=== PATIENT | female | born 1965 | race Caucasian/White ===

== ENCOUNTER 2023-10-11 07:37 | Emergency (ER) | payer OTHER, SELFPAY ==
[2023-10-11] VITALS (8 sets, daily range): BP systolic 124–170; BP diastolic 65–110; BMI 37.7
[2023-10-11 08:55] LABS: % Basophils 0.5 % (0-2); % Eosinophils 1.6 % (0-6); % Immature Granulocytes 0.6 % (0-0.5); % Lymphocytes 10.9 % (20.5-51.1); % Monocytes 5.4 % (1.7-9.3); Absolute Eosinophils 0.1 10^3/uL (0-0.7); Absolute Immature Granulocytes 0.1 10^3/uL (0-0.05); Absolute Monocytes 0.5 10^3/uL (0.1-0.6); Absolute Neutrophils 7.1 10^3/uL (1.4-6.5); Hematocrit 48.2 % (37.0-47.0); Hemoglobin 16.9 g/dL (12.0-16.0); Mean Corp Hgb Conc. 35.1 g/dL (33.0-37.0); Mean Corpuscular Hgb 32.9 pg (27.0-31.0); Mean Corpuscular Volume 93.8 fL (81.0-99.0); Mean Platelet Volume 9.6 fL (7.4-10.4); Nucleated Red Blood Cells % 0 %; Platelet Count 218 10^3/uL (130-400); Red Blood Cell Count 5.14 10^6/uL (4.20-5.40); Red Cell Dist. Width 12.3 % (11.5-14.5); White Blood Cell Count 8.8 10^3/uL (4.8-10.8)
--- NOTE | 2023-10-11 09:01 | ED.GENMED ---
History of Present Illness
General
Chief Complaint: Rectal Bleeding
Source: patient
Exam Limitations: none
Time Seen by Provider: 10/11/23 07:57
Travel History
Have you had any contact with someone who has COVID-19?: No
Do you have any symptoms of coronavirus? Fever > 100 degrees, chills, cough, shortness of breath, sore throat, loss of taste or smell, muscle aches, or headache?: No
History of Present Illness
History of Present Illness:
57-year-old female who presents with rectal bleeding that has has been ongoing for about 3 days. The patient does have a history of colectomy with colostomy and then reversal. She was cared for by Dr. Jarrett in the past. Patient states the last 3
days she has had persistent bleeding. She also has had intermittent episodes where she feels like pressure in her head and that her face is red. She had to drum puller yesterday because she was dry heaving and felt like 'my head was going to
explode'. Patient admits that it feels like the feeling you get when you are about to have a bowel movement but she does not get the abdominal pain. No fevers
Past History
Past History
ED Past Medical History: HTN and Other (IBS, celiac disease, diverticulitis)
ED Past Surgical History: Bowel resection, Gynecological (Us reduction. Uterine ablation) and Other (mastoidectomy b/l, ostomy post diverticulosis perf, colostomy reversal)
Social History
Tobacco: Former smoker
Alcohol: Occasional
Drug: None
Living: with family
Employment: Employed
Family History
Family History: Diabetes and CAD
Phy Exam
Physical Exam
Physical Exam:
CONSTITUTIONAL Patient alert and oriented to person, place and time. Well-appearing. Vital signs reviewed.
HEAD atraumatic, normocephalic.
EYES eyelids normal to inspection, Pupils equally round and reactive to light, Extraocular muscles intact, Conjunctiva normal, Sclera normal.
NECK normal range of motion, Trachea midline, no jugular venous distention.
RESPIRATORY CHEST No respiratory distress noted, Chest expansion equal, Bilateral breath sounds clear.
CARDIOVASCULAR regular rate and rhythm, Heart sounds normal.
ABDOMEN mild left-sided tenderness, Bowel sounds normal. No distention. Rectal exam with no true stool but smear is heme positive
BACK normal inspection, no obvious deformities
UPPER EXTREMITY range of motion normal, Motor strength normal, no cyanosis, no edema.
LOWER EXTREMITY range of motion normal, Motor strength normal, no cyanosis, no edema.
NEURO Speech normal, No focal motor deficits, Naoma coma scale 15, Memory normal, Cranial Nerves intact to screening exam.
SKIN skin warm, dry, and normal in color.
PSYCHIATRIC patient oriented to person place and time, Normal affect.
Course
Orders/Labs/Results
Orders:
Orders
10/11/23 08:09
IV Insert/Care/Rem.- Treatment PRN
10/11/23 08:10
0.9% Sodium Chloride 1000 ml [Nss] 1,000 ml IV BOLUS
10/11/23 08:39
Type+Screen Urgent
Complete Blood Count/With Diff Urgent
Comprehensive Metabolic Panel Urgent
10/11/23 09:06
CT Abd/pelvis Angio W/wo Iv Urgent
Comment:
Reason For Exam: rectal bleeding, h/o diverticulosis
10/11/23 09:11
Ondansetron Injectable [Zofran] 4 mg IV NOW STA
Abnormal Lab Results
10/11/23
08:39
Hgb 16.9 H g/dL
(12.0-16.0)
Hct 48.2 H %
(37.0-47.0)
MCH 32.9 H pg
(27.0-31.0)
Abs Immat Gran (auto) 0.1 H 10^3/uL
(0-0.05)
Absolute Neuts (auto) 7.1 H 10^3/uL
(1.4-6.5)
Absolute Lymphs (auto) 1.0 L 10^3/uL
(1.2-3.4)
Immature Gran % 0.6 H %
(0-0.5)
Neutrophils % 81.0 H %
(42.2-75.2)
Lymphocytes % 10.9 L %
(20.5-51.1)
Creatinine 0.5 L mg/dL
(0.6-1.0)
Glucose 145 H mg/dl
(70-99)
AST 90 H U/L
(14-36)
ALT 61 H U/L
(0-35)
10/11/23 08:39
10/11/23 08:39
Vital Signs
Initial and Last Documented VS:
Initial Vital Signs
Temp Pulse Resp BP Pulse Ox
98.6 F 98 16 170/110 98
10/11/23 07:41 10/11/23 07:41 10/11/23 07:41 10/11/23 07:41 10/11/23 07:41
Last Documented Vital Signs
Temp Pulse Resp BP Pulse Ox
98.6 F 88 15 125/73 90
10/11/23 07:41 10/11/23 12:30 10/11/23 12:30 10/11/23 12:00 10/11/23 11:15
MDM/Problems Addressed
MDM/Problems Addressed:
GI bleeding
*Radiology
Radiology exam reviewed: radiology read reviewed
*Pulse Oximetry
Patient hypoxic: no
*Second Baker Interpretation
Rate: normal
Interpretation: normal
Rhythm: sinus
*Critical Care Note
Total Time (30-74mins, 75-104mins- exclusive of procedures): Not Applicable
Data Reviewed
Review of Other/Old Records Reveals: Operative Reports and Discharge Summary
Source: patient
Patient Management
Discussion with other providers: Inspector Aligning (Case discussed with colorectal surgery)
Escalation/DeEscalation of care consider admission/obs:
Patient has had bleeding for 3 days and hemoglobin stable. Question internal hemorrhoidal bleeding. Patient does describe bright red blood. No bleeding while here. Colorectal surgery can follow as outpatient. I think this is reasonable patient
would like outpatient management. Outpatient follow-up with Dr. Jarrett
ED Attending Note
-
Portions of this chart may have been created with voice recognition software.� Occasional wrong word or��sound alike� substitutions may have occurred due to the inherent limitations of voice recognition software.
Discharge Plan
Departure
Patient Disposition: Home (Routine Discharge)
Date of Disposition: 10/11/23
Time of Disposition: 12:59
Patient with high blood pressure during this ER visit?: No
Discharge Problem:
Bright red rectal bleeding
Instructions: Gastrointestinal Bleeding (DC)
Prescriptions:
No Action
buspirone 5 MG tablet
5 mg PO BID
lisinopril 40 MG tablet
40 mg PO DAILY
aspirin 81 mg Tablet,Delayed Release (Dr/Ec)
81 mg PO MOWEFR
metoprolol succinate 50 mg tablet extended release 24 hr
50 mg PO BID
spironolactone 25 mg tablet
25 mg PO DAILY
lorazepam [Ativan] 0.5 mg Tablet
0.5 mg PO BIDPRN PRN (Reason: anxiety)
duloxetine [Cymbalta] 60 mg Capsule,Delayed Release(Dr/Ec)
60 mg PO DAILY
Medical Marijuana
2 - 3 inh inhalation HSPRN PRN (Reason: sleep)
Referrals:
Malka Jordan MD [Family Provider] -
Activity Restrictions/Additional Instructions:
Please see Dr. Jarrett or your doctor in the next 3-5 days for follow-up and reevaluation. Return immediately for abdominal pain, vomiting, increased bleeding, lightheadedness, weakness or any other concerns
Interventions
Interventions:
*Risk Screen - Suicide Last Done: 10/11/23 09:19
*General Assessment Last Done: 10/11/23 09:19
*Neglect/Abuse Screening Last Done: 10/11/23 09:19
ED- Fall Risk Assessment Last Done: 10/11/23 09:19
*ED COVID-19 Vaccine History Last Done: 10/11/23 07:41
XM-Ymcxir-Wenqyzxkvu Assessment Last Done: 10/11/23 09:19
ED- Cardiac Assessment Last Done: 10/11/23 09:19
ED- Pulmonary Assessment Last Done: 10/11/23 09:19
Discharge Date and Time
Print Language: VIETNAMESE
[2023-10-11] MEDS: NSS 1000 IV (09:06)
[2023-10-11 09:09] LABS: ALT (SGPT) 61 U/L (0-35); AST (SGOT) 90 U/L (14-36); Albumin 4.7 g/dl (3.5-5.0); Alkaline Phosphatase 126 U/L (38-126); Blood Urea Nitrogen 11 mg/dl (7-17); Calcium 10.2 mg/dl (8.4-10.2); Carbon Dioxide 26 mmol/L (22-30); Chloride 98 mmol/L (98-107); Estimated Creatinine Clearance 117 ml/min; Glucose 145 mg/dl (70-99); Potassium 4.5 mmol/L (3.5-5.1); Sodium 135 mmol/L (135-145); Total Bilirubin 0.9 mg/dl (0.2-1.3); Total Protein 7.6 g/dl (6.3-8.2); eGFR > 60.00
[2023-10-11] MEDS: ZOFRAN 4 MG IV (09:14)
== END 2023-10-11 13:15 | disposition home or self-care (01) ==
LOC: EMR 07:37
PROVIDERS: EMERGENCY PHYSICIAN Emergency Medicine; FAMILY PHYSICIAN Student in an Organized Health Care Education/Training Program
DX: K62.5 Hemorrhage of anus and rectum (principal); R11.10 Vomiting, unspecified; I10 Essential (primary) hypertension; K58.9 Irritable bowel syndrome, unspecified; K90.0 Celiac disease; K57.92 Diverticulitis of intestine, part unspecified, without perforation or abscess without bleeding; Z90.49 Acquired absence of other specified parts of digestive tract; Z87.891 Personal history of nicotine dependence; Z79.82 Long term (current) use of aspirin
CPT/HCPCS: 99285; 96361 ×2; 96374; 74174; 80053; 85025; 86850; 86900; 86901; Q9967

== ENCOUNTER → 2023-10-24 06:31 | Day surgery (SDC) | payer OTHER, SELFPAY | LOC: GI 06:31 | PROVIDERS: ATTENDING PHYSICIAN Surgery | DX: K62.5 Hemorrhage of anus and rectum (principal); K64.9 Unspecified hemorrhoids; K57.30 Diverticulosis of large intestine without perforation or abscess without bleeding; D12.8 Benign neoplasm of rectum; Z98.0 Intestinal bypass and anastomosis status | CPT/HCPCS: 45380; 88305 ==

== ENCOUNTER 2023-11-25 09:33 | Emergency (ER) | payer OTHER, SELFPAY ==
[2023-11-25] VITALS (13 sets, daily range): BP systolic 99–138; BP diastolic 59–117; BMI 36.5
[2023-11-25 10:00] LABS: % Basophils 0.7 % (0-2); % Eosinophils 0.8 % (0-6); % Immature Granulocytes 0.7 % (0-0.5); % Lymphocytes 12.1 % (20.5-51.1); % Monocytes 6.6 % (1.7-9.3); % Neutrophils 79.1 % (42.2-75.2); Absolute Basophils 0.1 10^3/uL (0-0.2); Absolute Eosinophils 0.1 10^3/uL (0-0.7); Absolute Immature Granulocytes 0.1 10^3/uL (0-0.05); Absolute Lymphocytes 1.6 10^3/uL (1.2-3.4); Absolute Monocytes 0.9 10^3/uL (0.1-0.6); Absolute Neutrophils 10.3 10^3/uL (1.4-6.5); Mean Corpuscular Hgb 33.1 pg (27.0-31.0); Mean Corpuscular Volume 89.4 fL (81.0-99.0); Mean Platelet Volume 9.4 fL (7.4-10.4); Nucleated Red Blood Cells % 0 %; Platelet Count 257 10^3/uL (130-400); Red Blood Cell Count 6.04 10^6/uL (4.20-5.40)
[2023-11-25 10:32] LABS: ALT (SGPT) 65 U/L (0-35); AST (SGOT) 67 U/L (14-36); Albumin 5.2 g/dl (3.5-5.0); Alkaline Phosphatase 125 U/L (38-126); Blood Urea Nitrogen 17 mg/dl (7-17); Calcium 10.8 mg/dl (8.4-10.2); Carbon Dioxide 21 mmol/L (22-30); Chloride 92 mmol/L (98-107); Estimated Creatinine Clearance 62 ml/min; Glucose 206 mg/dl (70-99); Lipase 106 U/L (23-300); Potassium 4.3 mmol/L (3.5-5.1); Sodium 132 mmol/L (135-145); Total Bilirubin 1.6 mg/dl (0.2-1.3); Total Protein 7.9 g/dl (6.3-8.2); eGFR 57.88
--- NOTE | 2023-11-25 11:40 | ED.GENMED ---
Addendum entered and electronically signed by Dimitris Parker, 11/29/23 20:11:
CT abdomen pelvis shows enteritis and fat stranding of multiple small bowel loops in the left hemiabdomen
Patient eloped
Original Note:
History of Present Illness
<Rodriguez Garcia MD, Resident - Last Filed: 11/25/23 14:50>
General
Chief Complaint: Abdominal Symptoms
Source: patient and spouse
Time Seen by Provider: 11/25/23 09:47
Travel History
Have you traveled to any high risk areas for coronavirus over the past 14 days?: No
Have you had any contact with someone who has COVID-19?: No
Do you have any symptoms of coronavirus? Fever > 100 degrees, chills, cough, shortness of breath, sore throat, loss of taste or smell, muscle aches, or headache?: No
History of Present Illness
History of Present Illness:
Nhi is a 58-year-old female with history of intra-abdominal abscesses s/p Apolonia resection in 2022, hypertension, hyperlipidemia, depression/anxiety, IBS, prediabetes presented to the ED with dizziness, nausea, vomiting. Patient describes
dizziness as 'out of ordinary', as if she is having stroke like symptoms. Yesterday morning patient felt dizzy, felt heat waves, was perspiring which prompted her to take her blood pressure blood pressure was 178/135. She took hydralazine 10 mg
which is a new medication added to her anti-hypertensive regimen. After 10 minutes of taking the medication she experienced nausea, vomiting (5-6 episodes ). She was unable to eat any solid food as she felt nauseous the whole day. She was only on
clear liquids, water specifically. She usually has similar episodes where her blood pressure rises. She denies headaches, neck pain, diplopia, blurry vision. She denies any sudden drop in her blood pressure. She sees Dr. Malka Jordan as
her PCP, who prescribed hydralazine 10 mg as needed for BP control and when she experiences these symptoms.
Past History
<Rodriguez Garcia MD, Resident - Last Filed: 11/25/23 14:50>
Past History
ED Past Medical History: HTN and Other (IBS, celiac disease, diverticulitis)
ED Past Surgical History: Bowel resection, Gynecological (Us reduction. Uterine ablation) and Other (mastoidectomy b/l, ostomy post diverticulosis perf, colostomy reversal)
Social History
Tobacco: Former smoker
Alcohol: Occasional
Drug: None
Living: with family
Employment: Employed
Family History
Family History: Diabetes and CAD
Review of Systems
<Rodriguez Garcia MD, Resident - Last Filed: 11/25/23 14:50>
Review of Systems
Constitutional: Reports weight gain
Cardiac: Reports diaphoresis
ABD/GI: Reports nausea and vomiting
Neurological: Reports dizzy
Phy Exam
<Rodriguez Garcia MD, Resident - Last Filed: 11/25/23 14:50>
General Physical Exam
General Presentation: no apparent distress
Eye Exam
Eye Exam: PERRL, EOMI and visual meyer normal
Conjunctival Changes: bilateral: none
Cardiovascular Exam
Cardiovascular Exam: regular rate/rhythm
Pulmonary Exam
Pulmonary Exam: lungs clear
Gastrointestinal Exam
Gastrointestinal Exam: normal bowel sounds, non tender, soft and non distended
Course
<Rodriguez Garcia MD, Resident - Last Filed: 11/25/23 14:50>
Orders/Labs/Results
Orders:
Orders
11/25/23 09:48
Complete Blood Count/With Diff Urgent
11/25/23 10:12
Comprehensive Metabolic Panel Urgent
Lipase Urgent
11/25/23 10:56
Electrocardiogram (*1) Urgent
Reason for Study: Vertigo / Dizzy
EKG- Treatment ONCE
11/25/23 11:27
Free T4 Urgent
TSH Urgent
Troponin I Urgent
11/25/23 11:44
0.9% Sodium Chloride 250 ml [Nss] 250 ml IV BOLUS
11/25/23 11:56
US Abdomen Complete/Upper Urgent
Comment:
Reason For Exam: elevated LFTs, hyperbilirubinemia
11/25/23 13:11
Ondansetron Injectable [Zofran] 4 mg IV NOW STA
11/25/23 14:24
Add On- LAB Urgent
Tests Added?: free t4
Abnormal Lab Results
11/25/23 11/25/23 11/25/23
09:48 10:12 11:27
WBC 13.0 H 10^3/uL
(4.8-10.8)
RBC 6.04 H 10^6/uL
(4.20-5.40)
Hgb 20.0 H g/dL
(12.0-16.0)
Hct 54.0 H %
(37.0-47.0)
MCH 33.1 H pg
(27.0-31.0)
Abs Immat Gran (auto) 0.1 H 10^3/uL
(0-0.05)
Absolute Neuts (auto) 10.3 H 10^3/uL
(1.4-6.5)
Absolute Monos (auto) 0.9 H 10^3/uL
(0.1-0.6)
Immature Gran % 0.7 H %
(0-0.5)
Neutrophils % 79.1 H %
(42.2-75.2)
Lymphocytes % 12.1 L %
(20.5-51.1)
Sodium 132 L mmol/L
(135-145)
Chloride 92 L mmol/L
(98-107)
Carbon Dioxide 21 L mmol/L
(22-30)
Creatinine 1.1 H mg/dL
(0.6-1.0)
Glucose 206 H mg/dl
(70-99)
Calcium 10.8 H mg/dl
(8.4-10.2)
Total Bilirubin 1.6 H mg/dl
(0.2-1.3)
AST 67 H U/L
(14-36)
ALT 65 H U/L
(0-35)
Troponin I 0.035 H* ng/ml
Albumin 5.2 H g/dl
(3.5-5.0)
TSH 5.02 H uIU/ml
(0.47-4.68)
11/25/23 09:48
11/25/23 10:12
Vital Signs
Initial and Last Documented VS:
Initial Vital Signs
Temp Pulse Resp BP Pulse Ox
98.2 F 101 16 138/117 97
11/25/23 09:37 11/25/23 09:37 11/25/23 09:37 11/25/23 09:37 11/25/23 09:37
Last Documented Vital Signs
Temp Pulse Resp BP Pulse Ox
98.2 F 84 18 117/81 93
11/25/23 09:37 11/25/23 13:00 11/25/23 13:00 11/25/23 13:00 11/25/23 13:00
<Miguel Ángel Mancia MD - Last Filed: 11/25/23 14:10>
Orders/Labs/Results
Orders:
Orders
11/25/23 09:48
Complete Blood Count/With Diff Urgent
11/25/23 10:12
Comprehensive Metabolic Panel Urgent
Lipase Urgent
11/25/23 10:56
Electrocardiogram (*1) Urgent
Reason for Study: Vertigo / Dizzy
EKG- Treatment ONCE
11/25/23 11:27
Free T4 Urgent
TSH Urgent
Troponin I Urgent
11/25/23 11:44
0.9% Sodium Chloride 250 ml [Nss] 250 ml IV BOLUS
11/25/23 11:56
US Abdomen Complete/Upper Urgent
Comment:
Reason For Exam: elevated LFTs, hyperbilirubinemia
11/25/23 13:11
Ondansetron Injectable [Zofran] 4 mg IV NOW STA
11/25/23 14:24
Add On- LAB Urgent
Tests Added?: free t4
Abnormal Lab Results
11/25/23 11/25/23 11/25/23
09:48 10:12 11:27
WBC 13.0 H 10^3/uL
(4.8-10.8)
RBC 6.04 H 10^6/uL
(4.20-5.40)
Hgb 20.0 H g/dL
(12.0-16.0)
Hct 54.0 H %
(37.0-47.0)
MCH 33.1 H pg
(27.0-31.0)
Abs Immat Gran (auto) 0.1 H 10^3/uL
(0-0.05)
Absolute Neuts (auto) 10.3 H 10^3/uL
(1.4-6.5)
Absolute Monos (auto) 0.9 H 10^3/uL
(0.1-0.6)
Immature Gran % 0.7 H %
(0-0.5)
Neutrophils % 79.1 H %
(42.2-75.2)
Lymphocytes % 12.1 L %
(20.5-51.1)
Sodium 132 L mmol/L
(135-145)
Chloride 92 L mmol/L
(98-107)
Carbon Dioxide 21 L mmol/L
(22-30)
Creatinine 1.1 H mg/dL
(0.6-1.0)
Glucose 206 H mg/dl
(70-99)
Calcium 10.8 H mg/dl
(8.4-10.2)
Total Bilirubin 1.6 H mg/dl
(0.2-1.3)
AST 67 H U/L
(14-36)
ALT 65 H U/L
(0-35)
Troponin I 0.035 H* ng/ml
Albumin 5.2 H g/dl
(3.5-5.0)
TSH 5.02 H uIU/ml
(0.47-4.68)
11/25/23 09:48
11/25/23 10:12
Vital Signs
Initial and Last Documented VS:
Initial Vital Signs
Temp Pulse Resp BP Pulse Ox
98.2 F 101 16 138/117 97
11/25/23 09:37 11/25/23 09:37 11/25/23 09:37 11/25/23 09:37 11/25/23 09:37
Last Documented Vital Signs
Temp Pulse Resp BP Pulse Ox
98.2 F 84 18 117/81 93
11/25/23 09:37 11/25/23 13:00 11/25/23 13:00 11/25/23 13:00 11/25/23 13:00
<Rodriguez Garcia MD, Resident - Last Filed: 11/25/23 14:50>
*Critical Care Note
Total Time (30-74mins, 75-104mins- exclusive of procedures): Not Applicable
<Rodriguez Garcia MD, Resident - Last Filed: 11/25/23 14:50>
Update Note
Update Note:
58-year-old female with recurrent nausea, vomiting, diaphoresis, polycythemia. Patient's hemoglobin increased from 16.p to 20, mild elevation of LFTs, mild hyperbilirubinemia. Patient's labs look suspicious because of increase in hemoglobin
levels, recurrent nausea, vomiting. Questionable if the patient has malignant lesions, pheochromocytoma (rare) which might cause these symptoms. EKG shows normal sinus rhythm, Troponin 0.035. Will check abdominal US for suspicious lesions. Prior
CT scan of abd/pelvis showed hepatic fatty infiltration, post colonic resection with sigmoid anastomosis, GB unremarkable. Would need further work up which is why will admit the patient.
ED Attending Note
<Rodriguez Garcia MD, Resident - Last Filed: 11/25/23 14:50>
-
Portions of this chart may have been created with voice recognition software.� Occasional wrong word or��sound alike� substitutions may have occurred due to the inherent limitations of voice recognition software.
<Miguel Ángel Mancia MD - Last Filed: 11/25/23 14:10>
ED Attending Note
Patient seen and examined by attending physician: Yes
I performed the substantive portion of visit, reviewed & personally made and approve the management plan that is documented in note by myself or BRADLEY.: Yes
ED Attending Note:
58-year-old female complaining of dizziness nausea recurrent sweating. Has been going on for 48 hours or so. No headache no neurologic symptoms no other complaints.
On exam patient is nontoxic. She has diffuse flushed look to her face. Speech is normal. Cranial nerves II through XII intact. Vlgeam-ai-gdfa is normal. Pzld-cl-mrrb is normal. Light touch intact. Eye confrontation normal. Abdomen is soft
and nontender. Heart regular rate and rhythm. Lungs are clear and equal.
Patient describing recurrent diaphoresis with hypertension and nausea and vomiting. Etiology unknown. However she is a leukocytosis significant polycythemia or elevation in hemoglobin mild elevation in LFTs persistent nausea and vomiting.
Warrants inpatient management
Discharge Plan
Departure
Prescriptions:
No Action
buspirone 5 MG tablet
5 mg PO BID
lisinopril 40 MG tablet
40 mg PO DAILY
metoprolol succinate 50 mg tablet extended release 24 hr
50 mg PO BID
spironolactone 25 mg tablet
25 mg PO DAILY
lorazepam [Ativan] 0.5 mg Tablet
0.5 mg PO BIDPRN PRN (Reason: anxiety)
duloxetine [Cymbalta] 60 mg Capsule,Delayed Release(Dr/Ec)
60 mg PO DAILY
Medical Marijuana
0.5 tbsp PO HSPRN PRN (Reason: sleep)
hydralazine 10 mg Tablet
10 mg PO QIDPRN PRN (Reason: BLOOD PRESSURE)
chlorthalidone 25 mg Tablet
25 mg PO DAILY
magnesium hydroxide [Milk of Magnesia] 400 mg/5 mL Suspension
1,200 mg PO DAILYPRN PRN (Reason: CONSTIPATION)
Referrals:
Malka Jordan MD [Family Provider] -
Interventions
Interventions:
*Risk Screen - Suicide Last Done: 11/25/23 09:37
*General Assessment Last Done: 11/25/23 09:37
*Neglect/Abuse Screening Last Done: 11/25/23 09:37
ED- Fall Risk Assessment Last Done: 11/25/23 09:44
*ED COVID-19 Vaccine History Last Done: 11/25/23 09:37
RW-Qhqlvg-Resdsqkkqz Assessment Last Done: 11/25/23 10:30
Discharge Date and Time
Print Language: [place]THER[place] IRISH
[2023-11-25 12:02] LABS: Troponin I 0.035 ng/ml
[2023-11-25 12:27] LABS: TSH 5.02 uIU/ml (0.47-4.68)
[2023-11-25] MEDS: NSS 250 IV (13:01)
[2023-11-25] MEDS: ZOFRAN 4 MG IV (13:16)
--- NOTE | 2023-11-25 15:20 | ED.GENMED ---
History of Present Illness
<Rodriguez Garcia MD, Resident - Last Filed: 11/27/23 14:46>
General
Chief Complaint: Abdominal Symptoms
Time Seen by Provider: 11/25/23 09:47
Travel History
Have you traveled to any high risk areas for coronavirus over the past 14 days?: No
Have you had any contact with someone who has COVID-19?: No
Do you have any symptoms of coronavirus? Fever > 100 degrees, chills, cough, shortness of breath, sore throat, loss of taste or smell, muscle aches, or headache?: No
Past History
<Rodriguez Garcia MD, Resident - Last Filed: 11/27/23 14:46>
Past History
ED Past Medical History: HTN and Other (IBS, celiac disease, diverticulitis)
ED Past Surgical History: Bowel resection, Gynecological (Us reduction. Uterine ablation) and Other (mastoidectomy b/l, ostomy post diverticulosis perf, colostomy reversal)
Social History
Tobacco: Former smoker
Alcohol: Occasional
Drug: None
Living: with family
Employment: Employed
Family History
Family History: Diabetes and CAD
Phy Exam
<Rodriguez Garcia MD, Resident - Last Filed: 11/27/23 14:46>
Physical Exam
Physical Exam:
No apparent distress
Course
<Rodriguez Garcia MD, Resident - Last Filed: 11/27/23 14:46>
Orders/Labs/Results
Orders:
Orders
11/25/23 09:48
Complete Blood Count/With Diff Urgent
11/25/23 10:12
Comprehensive Metabolic Panel Urgent
Erythropoietin (EPO) [S] Urgent
Comment: ADDON
Lipase Urgent
11/25/23 10:56
Electrocardiogram (*1) Urgent
Reason for Study: Vertigo / Dizzy
EKG- Treatment ONCE
11/25/23 11:27
Free T4 Urgent
TSH Urgent
Troponin I Urgent
11/25/23 11:44
0.9% Sodium Chloride 250 ml [Nss] 250 ml IV BOLUS
11/25/23 11:56
US Abdomen Complete/Upper Urgent
Comment:
Reason For Exam: elevated LFTs, hyperbilirubinemia
11/25/23 13:11
Ondansetron Injectable [Zofran] 4 mg IV NOW STA
11/25/23 14:24
Add On- LAB Urgent
Tests Added?: free t4
11/25/23 15:21
CT Abd/Pel (IV only)-DH only Urgent
Comment:
Reason For Exam: recurrent vomiting
0.9% Sodium Chloride 500 ml [Nss] 500 ml IV BOLUS
Iohexol [Omnipaque] See Protocol PO NOW STA
11/25/23 15:41
Electrocardiogram (*1) Urgent
Reason for Study: Other
Other Reason for Exam: repeat
EKG- Treatment ONCE
11/25/23 15:48
Troponin I Urgent
11/25/23 18:00
Add On- LAB Routine
Tests Added?: erythropoetin level
11/25/23 18:05
Code Status As Directed
Resuscitation Status: Full Code
11/27/23 11:00
DC Protocol for Telemetry ONCE
Abnormal Lab Results
11/25/23 11/25/23 11/25/23
09:48 10:12 11:27
WBC 13.0 H 10^3/uL
(4.8-10.8)
RBC 6.04 H 10^6/uL
(4.20-5.40)
Hgb 20.0 H g/dL
(12.0-16.0)
Hct 54.0 H %
(37.0-47.0)
MCH 33.1 H pg
(27.0-31.0)
Abs Immat Gran (auto) 0.1 H 10^3/uL
(0-0.05)
Absolute Neuts (auto) 10.3 H 10^3/uL
(1.4-6.5)
Absolute Monos (auto) 0.9 H 10^3/uL
(0.1-0.6)
Immature Gran % 0.7 H %
(0-0.5)
Neutrophils % 79.1 H %
(42.2-75.2)
Lymphocytes % 12.1 L %
(20.5-51.1)
Sodium 132 L mmol/L
(135-145)
Chloride 92 L mmol/L
(98-107)
Carbon Dioxide 21 L mmol/L
(22-30)
Creatinine 1.1 H mg/dL
(0.6-1.0)
Glucose 206 H mg/dl
(70-99)
Calcium 10.8 H mg/dl
(8.4-10.2)
Total Bilirubin 1.6 H mg/dl
(0.2-1.3)
AST 67 H U/L
(14-36)
ALT 65 H U/L
(0-35)
Troponin I 0.035 H* ng/ml
Albumin 5.2 H g/dl
(3.5-5.0)
TSH 5.02 H uIU/ml
(0.47-4.68)
11/25/23 09:48
11/25/23 10:12
Vital Signs
Initial and Last Documented VS:
Initial Vital Signs
Temp Pulse Resp BP Pulse Ox
98.2 F 101 16 138/117 97
11/25/23 09:37 11/25/23 09:37 11/25/23 09:37 11/25/23 09:37 11/25/23 09:37
Last Documented Vital Signs
Temp Pulse Resp BP Pulse Ox
98.2 F 84 18 126/91 91
11/25/23 09:37 11/25/23 17:30 11/25/23 17:30 11/25/23 16:00 11/25/23 17:30
<Dimitris Parker, DO - Last Filed: 11/29/23 20:06>
Orders/Labs/Results
Orders:
Orders
11/25/23 09:48
Complete Blood Count/With Diff Urgent
11/25/23 10:12
Comprehensive Metabolic Panel Urgent
Erythropoietin (EPO) [S] Urgent
Comment: ADDON
Lipase Urgent
11/25/23 10:56
Electrocardiogram (*1) Urgent
Reason for Study: Vertigo / Dizzy
EKG- Treatment ONCE
11/25/23 11:27
Free T4 Urgent
TSH Urgent
Troponin I Urgent
11/25/23 11:44
0.9% Sodium Chloride 250 ml [Nss] 250 ml IV BOLUS
11/25/23 11:56
US Abdomen Complete/Upper Urgent
Comment:
Reason For Exam: elevated LFTs, hyperbilirubinemia
11/25/23 13:11
Ondansetron Injectable [Zofran] 4 mg IV NOW STA
11/25/23 14:24
Add On- LAB Urgent
Tests Added?: free t4
11/25/23 15:21
CT Abd/Pel (IV only)-DH only Urgent
Comment:
Reason For Exam: recurrent vomiting
0.9% Sodium Chloride 500 ml [Nss] 500 ml IV BOLUS
Iohexol [Omnipaque] See Protocol PO NOW STA
11/25/23 15:41
Electrocardiogram (*1) Urgent
Reason for Study: Other
Other Reason for Exam: repeat
EKG- Treatment ONCE
11/25/23 15:48
Troponin I Urgent
11/25/23 18:00
Add On- LAB Routine
Tests Added?: erythropoetin level
11/25/23 18:05
Code Status As Directed
Resuscitation Status: Full Code
11/27/23 11:00
DC Protocol for Telemetry ONCE
Abnormal Lab Results
11/25/23 11/25/23 11/25/23
09:48 10:12 11:27
WBC 13.0 H 10^3/uL
(4.8-10.8)
RBC 6.04 H 10^6/uL
(4.20-5.40)
Hgb 20.0 H g/dL
(12.0-16.0)
Hct 54.0 H %
(37.0-47.0)
MCH 33.1 H pg
(27.0-31.0)
Abs Immat Gran (auto) 0.1 H 10^3/uL
(0-0.05)
Absolute Neuts (auto) 10.3 H 10^3/uL
(1.4-6.5)
Absolute Monos (auto) 0.9 H 10^3/uL
(0.1-0.6)
Immature Gran % 0.7 H %
(0-0.5)
Neutrophils % 79.1 H %
(42.2-75.2)
Lymphocytes % 12.1 L %
(20.5-51.1)
Sodium 132 L mmol/L
(135-145)
Chloride 92 L mmol/L
(98-107)
Carbon Dioxide 21 L mmol/L
(22-30)
Creatinine 1.1 H mg/dL
(0.6-1.0)
Glucose 206 H mg/dl
(70-99)
Calcium 10.8 H mg/dl
(8.4-10.2)
Total Bilirubin 1.6 H mg/dl
(0.2-1.3)
AST 67 H U/L
(14-36)
ALT 65 H U/L
(0-35)
Troponin I 0.035 H* ng/ml
Albumin 5.2 H g/dl
(3.5-5.0)
TSH 5.02 H uIU/ml
(0.47-4.68)
11/25/23 09:48
11/25/23 10:12
Vital Signs
Initial and Last Documented VS:
Initial Vital Signs
Temp Pulse Resp BP Pulse Ox
98.2 F 101 16 138/117 97
11/25/23 09:37 11/25/23 09:37 11/25/23 09:37 11/25/23 09:37 11/25/23 09:37
Last Documented Vital Signs
Temp Pulse Resp BP Pulse Ox
98.2 F 84 18 126/91 91
11/25/23 09:37 11/25/23 17:30 11/25/23 17:30 11/25/23 16:00 11/25/23 17:30
<Dimitris Parker, - Last Filed: 11/29/23 20:06>
MDM/Problems Addressed
Differential Diagnosis Includes:
Colitis, enteritis, bowel obstruction
MDM/Problems Addressed:
58-year-old female with enteritis, hypovolemia, likely polycythemia. Patient was to be admitted, but left AGAINST MEDICAL ADVICE.
<Rodriguez Garcia MD, Resident - Last Filed: 11/27/23 14:46>
*Critical Care Note
Total Time (30-74mins, 75-104mins- exclusive of procedures): Not Applicable
<Dimitris Parker, - Last Filed: 11/29/23 20:06>
*Radiology
Radiology exam reviewed: radiology read reviewed (CT abdomen pelvis shows enteritis and fat stranding of multiple small bowel loops in the left hemiabdomen)
*Pulse Oximetry
Patient hypoxic: no
*EKG
Interpreted by ED Provider?: Yes
EKG Intrepretation Date: 11/29/23
EKG Intrepretation Time: 11:05
Interpretation: abnormal
Comparison EKG: no changes
Heart Rate: 84
Rate: normal
Rhythm: sinus
[place]: normal axis
Interval: normal interval
QRS Pattern: normal QRS
Ischemia: no ischemia
*Fill Manager Interpretation
Rate: normal
Interpretation: normal
Heart Rate: 82
Rhythm: sinus
<Dimitris Parker, DO - Last Filed: 11/29/23 20:06>
Patient Management
Discussion with other providers: Hospitalist
Escalation/DeEscalation of care consider admission/obs:
Patient was admitted, but she eloped
ED Attending Note
<Rodriguez Garcia MD, Resident - Last Filed: 11/27/23 14:46>
-
Portions of this chart may have been created with voice recognition software.� Occasional wrong word or��sound alike� substitutions may have occurred due to the inherent limitations of voice recognition software.
Discharge Plan
Departure
Patient Disposition: Elopement
Date of Disposition: 11/25/23
Time of Disposition: 18:24
Patient with high blood pressure during this ER visit?: Yes
Condition: Good
Discharge Problem:
Enteritis, Hypovolemia
Prescriptions:
No Action
buspirone 5 MG tablet
5 mg PO BID
lisinopril 40 MG tablet
40 mg PO DAILY
metoprolol succinate 50 mg tablet extended release 24 hr
50 mg PO BID
spironolactone 25 mg tablet
25 mg PO DAILY
lorazepam [Ativan] 0.5 mg Tablet
0.5 mg PO BIDPRN PRN (Reason: anxiety)
duloxetine [Cymbalta] 60 mg Capsule,Delayed Release(Dr/Ec)
60 mg PO DAILY
Medical Marijuana
0.5 tbsp PO HSPRN PRN (Reason: sleep)
hydralazine 10 mg Tablet
10 mg PO QIDPRN PRN (Reason: BLOOD PRESSURE)
chlorthalidone 25 mg Tablet
25 mg PO DAILY
magnesium hydroxide [Milk of Magnesia] 400 mg/5 mL Suspension
1,200 mg PO DAILYPRN PRN (Reason: CONSTIPATION)
Interventions
Interventions:
*Risk Screen - Suicide Last Done: 11/25/23 09:37
*General Assessment Last Done: 11/25/23 09:37
*Neglect/Abuse Screening Last Done: 11/25/23 09:37
ED- Fall Risk Assessment Last Done: 11/25/23 09:44
*ED COVID-19 Vaccine History Last Done: 11/25/23 09:37
*Nursing Disposition Last Done: 11/25/23 18:45
ZR-[id number] Assessment Last Done: 11/25/23 10:30
Discharge Date and Time
Discharge Date/Time: 11/25/23 18:45
Print Language: WELSH
[2023-11-25] MEDS: NSS 500 IV (16:13)
--- NOTE | 2023-11-25 17:34 | HPS.HSE ---
Addendum entered and electronically signed by Jared Ram MD 11/26/23 08:31:
ER attending notified that patient left and didnt want to get admitted. Orders cancelled
Addendum entered and electronically signed by Jared Ram MD 11/25/23 18:23:
nursing notified pt wanted to leave AMA.
then walked back
Original Note:
Family Physician
-
Family Physician: Malka Jordan MD
Chief Complaint
-
Nausea vomiting
History of Present Illness
58-year-old female presented to the hospital with dizziness nausea and vomiting. She started with dizziness yesterday morning and was was feeling like heat waves. She checked her blood pressure was 178/135 at home. She took hydralazine 10 minutes
after she had nausea and vomiting and then could not keep anything down all day. She has been taking clear liquids. Had a bowel movement yesterday and today soft. No diarrhea no abdominal pain no fever
Medical History
Past Medical History
Past Medical History: Reports Other (Diverticulosis, hemorrhoids)
Additional Past Medical History:
Hypertension, celiac disease, diverticulosis, IBS, history of abdominal abscess, dysmenorrhea, uterine fibroids, osteoarthritis, anxiety and depression
Past Surgical History: Reports Other (Colonoscopy)
Additional Past Surgical History:
Pain ablation right leg, breast reduction surgery, uterine artery ablation, varicose vein stripping, right mastectomy, left mastectomy, colon resection with ostomy in May 2022, colostomy reversal November 2022, tubal ligation
Social History
Tobacco: Former Smoker
Alcohol: None
Drug: None
Personal:
Living: With Family
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
Family History
Family History: Other (Mother of CVA)
Allergies / Home Medications
Allergies reflects when Allergies were last updated in [facility].
Home Medications with original date entered in [facility]
Allergy/Medication List:
Allergies
Allergy/AdvReac Type Severity Reaction Status Date / Time
No Known Allergies Allergy Verified 10/11/23 07:44
Home Medications
buspirone 5 mg tablet 5 mg PO BID Mental Health/Anxiety 06/15/21
lisinopril 40 mg tablet 40 mg PO DAILY Blood pressure 06/15/21
metoprolol succinate 50 mg tablet,extended release 24 hr 50 mg PO BID Blood pressure 07/07/22
spironolactone 25 mg tablet 25 mg PO DAILY Blood pressure 07/07/22
duloxetine 60 mg capsule,delayed release (Cymbalta) 60 mg PO DAILY Mental Health/Anxiety 09/21/22
lorazepam 0.5 mg tablet (Ativan) 0.5 mg PO BIDPRN PRN anxiety 09/21/22
Medical Marijuana 0.5 tbsp PO HSPRN PRN sleep 10/11/23
chlorthalidone 25 mg tablet 25 mg PO DAILY 11/25/23
hydralazine 10 mg tablet 10 mg PO QIDPRN PRN BLOOD PRESSURE 11/25/23
magnesium hydroxide 400 mg/5 mL oral suspension (Milk of Magnesia) 1,200 mg PO DAILYPRN PRN CONSTIPATION 11/25/23
Review of Systems
-
A 12 point ROS was completed and negative except as noted: Yes
Respiratory: Denies Trouble Breathing
Cardiac: Denies Chest Pain
Abdomen/GI: Reports Nausea and Vomiting; Denies Diarrhea
Physical Exam
Vital Signs
Vital Signs
Temp Pulse Resp BP Pulse Ox
98.2 F 84 18 117/81 93
11/25/23 09:37 11/25/23 13:00 11/25/23 13:00 11/25/23 13:00 11/25/23 13:00
Physical Exam
General: No Apparent Distress
Respiratory: Clear
Cardiac: S1/S2 and Regular Rhythm
GI: Soft, Non Tender and Normal Bowel Sounds
Neuro: AO x 3 and Nonfocal/grossly intact
Psych: Intact Judgment/Insight
Laboratory Results
-
11/25/23 09:48
11/25/23 10:12
Laboratory Results
Total Bilirubin 1.6 mg/dl (0.2-1.3) H 11/25/23 10:12
AST 67 U/L (14-36) H 11/25/23 10:12
ALT 65 U/L (0-35) H 11/25/23 10:12
Alkaline Phosphatase 125 U/L (38-126) 11/25/23 10:12
Troponin I 0.030 ng/ml 11/25/23 15:48
Lipase 106 U/L (23-300) 11/25/23 10:12
Data Reviewed
-
CT Scan: Report Reviewed by me (CT of the abdomen and pelvis with IV contrast-infectious or inflammatory enteritis with wall thickening and fat stranding of multiple small bowel loops in the left hemiabdomen)
Medical Tests (Nuc Med, Echo, EKG etc): Report Reviewed by me (EKG-sinus rhythm, inferior infarct-old, anterior infarct old)
Impression/Plan
-
IMPRESSION/PLAN:
Colonoscopy10/24/2023-2 diminutive polyps in the rectum removed, and 20 colorectal anastomosis with healthy-appearing mucosa. Diverticulosis in the descending colon, hemorrhoids
# Nausea vomiting
Enteritis on CT
Infectious versus inflammatory
Clear liquid diet
IV fluids
Stool cultures if possible
GI evaluation
# History of celiac disease
# Hypertension-
Outpatient regimen-Aldactone 25 mg/metoprolol 50 mg twice daily/lisinopril 40 mg daily/chlorthalidone 25 mg daily/hydralazine 10 mg 4 times daily as needed
She does not want to take hydralazine again as she feels symptoms started with this.
# Polycythemia-hydrate and follow. Check Erythropoietin level.
# Hyponatremia-likely hypovolemic given elevated creatinine. Normal saline and follow tomorrow
# Hypercalcemia-likely dehydration [id number]
# Elevated LFTs--not new. Unclear if secondary to celiac disease?
# Non-[place] troponin elevation trending down
# Elevated TSH with normal T4-likely euthyroid sick syndrome-rpt in 6 weeks
# Anxiety and depression-on Ativan and buspirone 5 mg p.o. twice daily
# Medical marijuana use
# History of colostomy with reversal 12/15/23-recent colonoscopy as above
# Sleep apnea
# Morbid obesity
# Ex-smoker
# DVT prophylaxis-Lovenox
# Full code
--- NOTE | 2023-11-25 18:20 | EDRN ---
After speaking with Admitting team, patient requests to leave. Admission orders in. TT Dr. Ram to speak with patient due to wanting to leave. Told by Dr. Ram to 'ask ER'. Once this RN stated that the patient is already in for admission,
Leanna States 'I don't have to be involved if she needs to leave'. Patient removed IV and walked out of department. After notifying Dr. Ram that patient eloped, states 'Okay'. ER business english instructor and manager architectural able to convince patient to stay.
Leanna made aware patient has returned.
--- NOTE | 2023-11-25 18:45 | EDRN ---
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 Pt informed this RN would return in a few minutes with radha-dmitriy as I was assisting another pt at that time. Assisted pt with having a sip of water and told her I would return with radha-dmitriy. Several minutes
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 Attempt to discuss rationale for admission and reassure pt that I would get her radha-dmitriy. Pt not receptive and so I asked pt to wait for admitting physician to be notified and come speak
with her. Pt states she can leave if she wants. When this RN returned to room a few minutes later, pt had removed IV and cardiac leads, left the room and went outside. Charge nurse Avelina outside speaking with pt. Pt eventually returns to room 11.
This RN cleaned up cardiac monitoring and IV pt had thrown on floor, changed linens, provided pt with clean gown. Pt then again, walked out of room approx 10 min after returning and did not speak a word to this RN as she left abruptly. Charge nurse
Avelina again spoke with pt outside, pt said she was going to a different hospital and refused to return.
[2023-11-27 12:02] LABS: Erythropoietin (EPO) 5 mU/mL (4-27)
== END 2023-11-25 18:45 | disposition left against medical advice (07) ==
LOC: EMR 09:33
PROVIDERS: Emergency Medicine; Student in an Organized Health Care Education/Training Program; EMERGENCY PHYSICIAN Emergency Medicine; FAMILY PHYSICIAN Student in an Organized Health Care Education/Training Program
DX: E86.1 Hypovolemia (principal); K52.9 Noninfective gastroenteritis and colitis, unspecified; I10 Essential (primary) hypertension; E78.5 Hyperlipidemia, unspecified; F32.A Depression, unspecified; F41.9 Anxiety disorder, unspecified; Z87.891 Personal history of nicotine dependence
CPT/HCPCS: 99285; 96374; 96361 ×2; 74177; 76700; 80053; 82668; 83690; 84439; 84443; 84484; 85025; 93005; Q9967

== ENCOUNTER → 2023-11-28 08:08 | Outpatient (REF) | payer OTHER, SELFPAY ==
[2023-11-28 08:46] LABS: % Basophils 0.6 % (0-2); % Eosinophils 2.1 % (0-6); % Immature Granulocytes 0.7 % (0-0.5); % Lymphocytes 13.3 % (20.5-51.1); % Monocytes 6.8 % (1.7-9.3); % Neutrophils 76.5 % (42.2-75.2); Absolute Basophils 0.1 10^3/uL (0-0.2); Absolute Eosinophils 0.2 10^3/uL (0-0.7); Absolute Immature Granulocytes 0.1 10^3/uL (0-0.05); Absolute Lymphocytes 1.1 10^3/uL (1.2-3.4); Absolute Monocytes 0.6 10^3/uL (0.1-0.6); Absolute Neutrophils 6.1 10^3/uL (1.4-6.5); Hematocrit 44.4 % (37.0-47.0); Hemoglobin 16.5 g/dL (12.0-16.0); Mean Corp Hgb Conc. 37.2 g/dL (33.0-37.0); Mean Corpuscular Volume 91.4 fL (81.0-99.0); Mean Platelet Volume 9.8 fL (7.4-10.4); Nucleated Red Blood Cells % 0 %; Platelet Count 179 10^3/uL (130-400); Red Blood Cell Count 4.86 10^6/uL (4.20-5.40); Red Cell Dist. Width 12.6 % (11.5-14.5)
[2023-11-28 09:06] LABS: Erythrocyte Sed Rate 11 mm/hour (0-20)
[2023-11-28 09:23] LABS: Procalcitonin 0.06 ng/ml (0.0-0.25)
[2023-11-28 10:03] LABS: ALT (SGPT) 38 U/L (0-35); AST (SGOT) 40 U/L (14-36); Alkaline Phosphatase 95 U/L (38-126); Blood Urea Nitrogen 17 mg/dl (7-17); Calcium 10.8 mg/dl (8.4-10.2); Carbon Dioxide 27 mmol/L (22-30); Chloride 87 mmol/L (98-107); Glucose 149 mg/dl (70-99); HDL Cholesterol 46 mg/dl; LDL Cholesterol, Calculated 164 mg/dl; Potassium 4.2 mmol/L (3.5-5.1); Sodium 127 mmol/L (135-145); Total Bilirubin 1.6 mg/dl (0.2-1.3); Total Cholesterol 248 mg/dl (50-199); Total Protein 7.3 g/dl (6.3-8.2); Triglyceride 194 mg/dl (10-149); Very Low Density Lipoprotein 38 mg/dl (0-30); eGFR > 60.00
== END ==
LOC: REG 08:08
PROVIDERS: ATTENDING PHYSICIAN Student in an Organized Health Care Education/Training Program
DX: K76.0 Fatty (change of) liver, not elsewhere classified (principal); R11.2 Nausea with vomiting, unspecified; D58.2 Other hemoglobinopathies; R79.89 Other specified abnormal findings of blood chemistry
CPT/HCPCS: 36415; 80053; 80061; 84145; 85025; 85652; 86140

== ENCOUNTER 2023-12-04 17:24 | Emergency (ER) | payer OTHER, SELFPAY ==
[2023-12-04 17:30] VITALS: BP 96/67
--- NOTE | 2023-12-04 17:33 | ED.GENMED ---
History of Present Illness
General
Chief Complaint: Allergic Reaction
Time Seen by Provider: 12/04/23 17:27
History of Present Illness
History of Present Illness:
HPI: The patient was inside (not outside as documented in triage note) and suddenly felt sensation of facial swelling. Of note, she did recently eat tuna however she does eat tuna fairly regularly. EMS was called and gave her IM epi, IV Decadron,
IV Benadryl and brought her here for further evaluation. They also briefly had her on oxygen 'which made me feel better'. She is currently off oxygen.
EXAM:
GENERAL: The patient is in no significant distress
HEENT: Moist oral mucosa, the tongue appears slightly edematous however the patient does not feel any sensation of tongue abnormality, the posterior oropharynx, there is moderate to severe periorbital edema noted bilaterally
CARDIOVASCULAR: No murmurs, normal heart rate, regular rhythm, No chest wall tenderness
PULMONARY: No respiratory distress, breath sounds are clear and equal
ABDOMEN: Soft with no peritoneal signs, no tenderness
NEUROLOGIC: Excellent strength all extremities, no coordination deficits
PSYCHIATRIC: Appropriate mental status, normal insight and judgement
EXTREMITIES: Nontender, no edema, moves all extremities equally
SKIN: Facial erythema noted
TIME OF INITIAL ENCOUNTER: 5:30 PM
NUMBER AND COMPLEXITY OF PROBLEMS ADDRESSED AT THE ENCOUNTER
� Chronic conditions affecting care: High blood pressure, diverticular disease, anxiety/depression
� Acute Exacerbation and/or Progression of Chronic Illness: This is an acute problem
� Differential Diagnosis includes: Anaphylaxis, angioedema, severe allergic reaction
AMOUNT AND/OR COMPLEXITY OF DATA TO BE REVIEWED AND ANALYZED
� I performed an independent evaluation of and my interpretation is:
EKG:
CT:
X-rays:
Laboratory Studies: No indication for blood work at this time
Other:
� Review of other/old records: The patient was seen here in the ED but ultimately left prior to admission related to enteritis earlier this month
� Clinical information was obtained by an independent historian: I spoke to EMS at bedside
� Prescriptions/Medications Considered but not given:
� Further testing considered but not performed:
RISK OF COMPLICATIONS AND/OR MORBIDITY OR MORTALITY OF PATIENT MANAGEMENT
� Social determinants of health affecting care: Lives at home
� Discussion with other providers:
� Escalation of care including admission/observation vs risk of discharge considered: The patient is on lisinopril and I suspect this very likely could be a contributing factor for her symptoms. She also reports a chronic cough.
Will switch from lisinopril to losartan. I have also given a prescription for an EpiPen and steroids. Her blood pressure was slightly low and we did give some IV fluids as well. The patient's blood pressure did improve after administration of IV
fluid. She feels markedly improved prior to discharge.
Past History
Past History
ED Past Medical History: HTN and Other
ED Past Surgical History: Bowel resection, Gynecological and Other
Social History
Tobacco: Former smoker
Alcohol: Occasional
Drug: None
Living: with family
Employment: Employed
Family History
Family History: Diabetes and CAD
Phy Exam
Physical Exam
Physical Exam:
See HPI
Course
Orders/Labs/Results
Orders:
Orders
12/04/23 17:27
Famotidine [Pepcid] 20 mg IV NOW STA
12/04/23 19:05
0.9% Sodium Chloride 1000 ml [Nss] 1,000 ml IV BOLUS
Vital Signs
Blood pressure: 108/50
Initial and Last Documented VS:
Initial Vital Signs
Temp Pulse Resp Pulse Ox
97.5 F 86 15 94
12/04/23 17:28 12/04/23 17:28 12/04/23 17:28 12/04/23 17:28
Last Documented Vital Signs
Temp Pulse Resp BP Pulse Ox
97.5 F 79 16 101/72 94
12/04/23 17:28 12/04/23 21:30 12/04/23 21:30 12/04/23 21:30 12/04/23 21:30
*Critical Care Note
Total Time (30-74mins, 75-104mins- exclusive of procedures): Not Applicable
ED Attending Note
-
Portions of this chart may have been created with voice recognition software.� Occasional wrong word or��sound alike� substitutions may have occurred due to the inherent limitations of voice recognition software.
Discharge Plan
Departure
Patient Disposition: Home (Routine Discharge)
Date of Disposition: 12/04/23
Time of Disposition: 20:08
Patient with high blood pressure during this ER visit?: No
Discharge Problem:
Angioedema
Instructions: Angioedema
Prescriptions:
New
epinephrine [EpiPen 2-Stephon] 0.3 mg/0.3 mL auto-injector
0.3 mg IM Q5-15M PRN (Reason: anaphylaxis) Qty: 2 0RF
prednisone 50 mg tablet
50 mg PO DAILY Qty: 4 0RF
No Action
buspirone 5 MG tablet
5 mg PO BID
lisinopril 40 MG tablet
40 mg PO DAILY
metoprolol succinate 50 mg tablet extended release 24 hr
50 mg PO BID
spironolactone 25 mg tablet
25 mg PO DAILY
lorazepam [Ativan] 0.5 mg Tablet
0.5 mg PO BIDPRN PRN (Reason: anxiety)
Patient Comments:
12/04/2023: last filled 11/16/23, 60 tabs for 30 days from [facility]
duloxetine [Cymbalta] 60 mg Capsule,Delayed Release(Dr/Ec)
60 mg PO DAILY
Referrals:
UNKNOWN - PT DOES,NOT KNOW [Unknown Provider] -
Activity Restrictions/Additional Instructions:
Stop lisinopril. You also had several low blood pressure readings here. EMS gave you IV Decadron, IV Benadryl, and you are also given epinephrine as a shot. I gave you a dose of IV Pepcid here and then IV fluids. Your systolic blood pressure was
in the 90s. Instead of giving you the prescription for losartan as I initially recommended (substituting for lisinopril), I recommend that you have your blood pressure checked by your primary care doctor tomorrow and they will decide further
management.
Interventions
Interventions:
*Risk Screen - Suicide Last Done: 12/04/23 17:28
*General Assessment Last Done: 12/04/23 17:28
*Neglect/Abuse Screening Last Done: 12/04/23 17:28
ED- Fall Risk Assessment Last Done: 12/04/23 21:45
*ED COVID-19 Vaccine History Last Done: 12/04/23 21:45
*Nursing Disposition Last Done: 12/04/23 21:45
ED- Cardiac Assessment Last Done: 12/04/23 17:45
ED- Pulmonary Assessment Last Done: 12/04/23 17:45
ED-Skin Assessment Last Done: 12/04/23 19:15
Discharge Date and Time
Discharge Date/Time: 12/04/23 21:45
Print Language: FRISIAN
[2023-12-04] MEDS: PEPCID 20 MG IV (17:35)
[2023-12-04] MEDS: NSS 1000 IV (19:33)
[2023-12-04 20:00] VITALS: BP 93/59
--- NOTE | 2023-12-04 20:15 | EDRN ---
lips swollen. Pt's face red. chest red. Per she is much better.Pt states that she can now breathe fine. Pt talking clearly.
[2023-12-04 21:00] VITALS: BP 110/66
[2023-12-04 21:30] VITALS: BP 101/72
== END 2023-12-04 21:45 | disposition home or self-care (01) ==
LOC: EMR 17:24
PROVIDERS: EMERGENCY PHYSICIAN Emergency Medicine; FAMILY PHYSICIAN Student in an Organized Health Care Education/Training Program
DX: T78.3XXA Angioneurotic edema, initial encounter (principal); X58.XXXA Exposure to other specified factors, initial encounter; I10 Essential (primary) hypertension; Z82.49 Family history of ischemic heart disease and other diseases of the circulatory system; Z83.3 Family history of diabetes mellitus; Z87.891 Personal history of nicotine dependence
CPT/HCPCS: 99282; 96374; 96361

== ENCOUNTER 2023-12-13 22:49 | Emergency (ER) | payer OTHER, SELFPAY ==
[2023-12-13 22:50] VITALS: BP 117/77
[2023-12-13 22:52] VITALS: BP 117/77
[2023-12-13 22:56] VITALS: BMI 37.1
[2023-12-13 23:00] VITALS: BP 115/74
[2023-12-14] VITALS: BP 109/73
[2023-12-14 01:13] VITALS: BP 125/76
--- NOTE | 2023-12-14 01:47 | ED.GENMED ---
History of Present Illness
General
Chief Complaint: Fall
Source: patient
Time Seen by Provider: 12/13/23 23:53
History of Present Illness
History of Present Illness:
58-year-old female presents to the emergency room for evaluation of a head injury. Patient admits to having a couple drinks tonight. She was on her toilet and when she stood up she fell forward and struck her forehead. No loss of consciousness.
Patient suffered a large laceration to her forehead. She denies any neck pain. She denies any oral anticoagulants.
Past History
Past History
ED Past Medical History: HTN and Other
ED Past Surgical History: Bowel resection, Gynecological and Other
Social History
Tobacco: Former smoker
Alcohol: Occasional
Drug: None
Living: with family
Employment: Employed
Family History
Family History: Diabetes and CAD
Phy Exam
Physical Exam
Physical Exam:
General: Awake, Alert, Oriented X3. No acute distress, high BMI
Vitals: unremarkable
Head: 9 cm laceration noted to the forehead to the left of the midline. Laceration is irregular in shape.
Eyes: Pupils equal, EOMI
Throat: Airway intact, no exudates
Neck: Trachea midline, no tenderness palpation midline spine
Lungs: Clear and equal b/l
Heart: Regular rate, no murmurs
Abd: Soft, Nontender, No pulsatile mass
Neuro: Cranial nerves intact, muscle strength equal bilaterally,
Skin: Warm, dry, no rash
Extremities: pulses equal b/l, no edema
Course
Orders/Labs/Results
Orders:
Orders
12/14/23 00:11
CT Head W/o Iv Contrast Urgent
Comment:
Reason For Exam: trauma
12/14/23 00:12
CT Cervical Spine W/o Iv Contr Urgent
Comment:
Reason For Exam: trauma
Vital Signs
Initial and Last Documented VS:
Initial Vital Signs
Temp Pulse Resp BP Pulse Ox
97.9 F 70 17 117/77 97
12/13/23 22:50 12/13/23 22:50 12/13/23 22:50 12/13/23 22:50 12/13/23 22:50
Last Documented Vital Signs
Temp Pulse Resp BP Pulse Ox
97.9 F 70 17 125/76 91
12/13/23 22:50 12/13/23 22:50 12/13/23 22:50 12/14/23 01:13 12/14/23 01:45
Procedures
Laceration Closure
Right Forehead:
Status of Wound: clean
Size of Wound in cm: 9
Description of Wound Edges: ragged
Preparation: cleaned with saline
Anesthesia: 1% Lidocaine with epi
Revision/Debridement: minor revision and debrided
Wound exploration: extensive cleaning of contaminated wound
Type of Closure: layered closure
Skin Closure Material: 5-0 nylon and 4-0 vicryl
Number of sutures: 25
Additional information:
5 buried Vicryl sutures to help relieve tension and approximate the wound. 20 simple interrupted 5-0 nylon sutures
MDM/Problems Addressed
Differential Diagnosis Includes:
Subdural, concussion, subarachnoid hemorrhage, skull fracture, cervical spine fracture
MDM/Problems Addressed:
CTA head and neck showed no acute abnormalities. She does have some degenerative changes of the neck. Large forehead laceration closed.
*Radiology
Radiology exam reviewed: other (Vision radiology report shows no acute head or neck injury)
*Pulse Oximetry
Patient hypoxic: no
*Critical Care Note
Total Time (30-74mins, 75-104mins- exclusive of procedures): Not Applicable
ED Attending Note
-
Portions of this chart may have been created with voice recognition software.� Occasional wrong word or��sound alike� substitutions may have occurred due to the inherent limitations of voice recognition software.
Discharge Plan
Departure
Patient Disposition: Home (Routine Discharge)
Date of Disposition: 12/14/23
Time of Disposition: 01:51
Patient with high blood pressure during this ER visit?: No
Condition: Good
Discharge Problem:
Head injury, Complex laceration of forehead
Instructions: Head Injury in Adults (DC), Laceration Repair With Stitches (DC)
Prescriptions:
No Action
buspirone 5 MG tablet
5 mg PO BID
lisinopril 40 MG tablet
40 mg PO DAILY
metoprolol succinate 50 mg tablet extended release 24 hr
50 mg PO BID
spironolactone 25 mg tablet
25 mg PO DAILY
lorazepam [Ativan] 0.5 mg Tablet
0.5 mg PO BIDPRN PRN (Reason: anxiety)
Patient Comments:
12/04/2023: last filled 11/16/23, 60 tabs for 30 days from [facility]
duloxetine [Cymbalta] 60 mg Capsule,Delayed Release(Dr/Ec)
60 mg PO DAILY
epinephrine [EpiPen 2-Stephon] 0.3 mg/0.3 mL auto-injector
0.3 mg IM Q5-15M PRN (Reason: anaphylaxis) Qty: 2 0RF
prednisone 50 mg tablet
50 mg PO DAILY Qty: 4 0RF
Referrals:
Malka Jordan MD [Family Provider] -
Activity Restrictions/Additional Instructions:
The stitches need to be removed in 5 days.
Interventions
Interventions:
*Risk Screen - Suicide Last Done: 12/13/23 22:56
*General Assessment Last Done: 12/13/23 22:56
*Neglect/Abuse Screening Last Done: 12/13/23 22:56
ED- Fall Risk Assessment Last Done: 12/14/23 02:06
*ED COVID-19 Vaccine History Last Done: 12/13/23 22:56
*Nursing Disposition Last Done: 12/14/23 02:06
ED-Musculoskeletal Assessment Last Done: 12/13/23 22:56
ED- Neurological Assessment Last Done: 12/13/23 22:56
ED-Skin Assessment Last Done: 12/13/23 22:56
Discharge Date and Time
Discharge Date/Time: 12/14/23 02:07
Print Language: JAPANESE
== END 2023-12-14 02:07 | disposition home or self-care (01) ==
LOC: EMR 22:49
PROVIDERS: EMERGENCY PHYSICIAN Emergency Medicine; FAMILY PHYSICIAN Student in an Organized Health Care Education/Training Program
DX: S01.81XA Laceration without foreign body of other part of head, initial encounter (principal); S09.90XA Unspecified injury of head, initial encounter; W18.12XA Fall from or off toilet with subsequent striking against object, initial encounter; Y93.E8 Activity, other personal hygiene; Y92.002 Bathroom of unspecified non-institutional (private) residence as the place of occurrence of the external cause; I10 Essential (primary) hypertension; F10.90 Alcohol use, unspecified, uncomplicated; Z87.891 Personal history of nicotine dependence; Z98.0 Intestinal bypass and anastomosis status
CPT/HCPCS: 99284; 12054; 70450; 72125

== ENCOUNTER → 2024-11-24 06:57 | Emergency (ER) | payer OTHER, SELFPAY ==
[2024-11-24] VITALS (20 sets, daily range): BP systolic 145–210; BP diastolic 72–118; BMI 37.9
[2024-11-24] MEDS: ZOFRAN 4 MG IV ×3 (07:10→12:21)
[2024-11-24 07:14] LABS: Hematocrit 51.4 % (37.0-47.0); Hemoglobin 18.4 g/dL (12.0-16.0); Mean Corp Hgb Conc. 35.8 g/dL (33.0-37.0); Mean Corpuscular Volume 95.4 fL (81.0-99.0); Nucleated Red Blood Cells % 0 %; Platelet Count 182 10^3/uL (130-400); Red Cell Dist. Width 12.4 % (11.5-14.5)
[2024-11-24 07:23] LABS: INR 1.03; PT 13.8 Sec (11.4-14.6)
[2024-11-24 07:27] LABS: ALT (SGPT) 59 U/L (0-35); AST (SGOT) 61 U/L (14-36); Albumin 4.8 g/dl (3.5-5.0); Alkaline Phosphatase 120 U/L (38-126); Blood Urea Nitrogen 15 mg/dl (7-17); Calcium 9.9 mg/dl (8.4-10.2); Carbon Dioxide 26 mmol/L (22-30); Chloride 100 mmol/L (98-107); Estimated Creatinine Clearance 115 ml/min; Glucose 200 mg/dl (70-99); Lipase 137 U/L (23-300); Potassium 4.6 mmol/L (3.5-5.1); Sodium 134 mmol/L (135-145); Total Protein 7.9 g/dl (6.3-8.2); eGFR > 60.00
[2024-11-24 07:40] LABS: Troponin I 0.016 ng/ml
--- NOTE | 2024-11-24 08:23 | ED.GENMED ---
History of Present Illness
General
Chief Complaint: Chest Pain
Source: patient
Exam Limitations: none
Time Seen by Provider: 11/24/24 07:15
Nursing documentation reviewed up to this point in time: agreed with
History of Present Illness
History of Present Illness:
Patient presents to ED secondary to worsening left-sided chest pain since yesterday afternoon. Chest pain described as stabbing, left-sided, without radiation, worse when sitting up, improved when laying flat. Denies trauma. Denies back pain.
Denies vomiting or diarrhea, although patient does describe nausea sensation. Denies leg pain or swelling. Denies recent travel or surgery. Denies back pain. Denies fever or chills. Denies recent change in medications or diet. Denies previous
history of similar symptoms. Denies family history of heart disease. Denies family history of blood clots. Patient was given 325 mg of aspirin in route to the hospital by paramedics.
Past History
Past History
ED Past Medical History: HTN and Other
ED Past Surgical History: Bowel resection, Gynecological and Other
Social History
Tobacco: Former smoker
Alcohol: Occasional
Drug: None
Living: with family
Employment: Employed
Family History
Family History: Diabetes and CAD
Review of Systems
Review of Systems
Allergies reviewed?: Yes
All Other Systems: ROS reviewed and negative except as documented in HPI and ROS
Constitutional: Reports no symptoms
Respiratory: Reports no symptoms
Cardiac: Reports chest pain
ABD/GI: Reports abdominal pain and nausea; Denies vomiting
: Reports no symptoms
Musculoskeletal: Reports no symptoms; Denies back pain
Skin: Reports no symptoms
Neurological: Reports no symptoms; Denies dizzy or weakness
Phy Exam
Physical Exam
Physical Exam:
Physical Exam
General: moderate painful distress, not acutely ill. afebrile
Head: nc/at. eomi
Neck: supple. normal range of motion.
Heart: s1/s2 regular rate and rhythm.
Lungs: no acute respiratory distress. clear bilaterally
Abdomen: normal bowel sounds. not tender.
Neuro: alert and oriented x 3. no focal neurological deficits
Skin: no rash
Psychiatric: well kept. interactive and cooperative
Extremities: no edema. no calf tenderness.
Scores
Heart Score for Chest Pain Patients
STEMI patient?: No
History: Slightly or Non-Suspicious
ECG: Normal
Age: >45 - <65 years
Risk Factors: 1 or 2 Risk Factors
Troponin: </= Normal Limit
Heart Score for Chest Pain Patients: 2
Heart Score Risk: 2.5% MACE over next 6 weeks
Course
Orders/Labs/Results
Orders:
Orders
11/24/24 07:07
Electrocardiogram (*1) Urgent
Reason for Study: Chest Pain
Cardiac Monitoring- Treatment ONCE
EKG- Treatment ONCE
IV Insert/Care/Rem.- Treatment PRN
O2 Therapy [RESP] Urgent
Titrate/Wean O2 to maintain O2 sat greater than (%): 90
Special Instructions: Maintain sats >/=90%
Pulse Ox/spot Check [RESP] Urgent
Quantity: 1
Special Instructions: ON ROOM AIR
11/24/24 07:08
Complete Blood Count/With Diff Urgent
Comprehensive Metabolic Panel Urgent
Lipase Urgent
Prothrombin Time Urgent
Troponin I Urgent
Ondansetron Injectable [Zofran] 4 mg .ROUTE .STK-MED ONE
11/24/24 07:10
Ondansetron Injectable [Zofran] 4 mg IV NOW STA
11/24/24 07:31
CT Chest/abd/pelvis Angio W/wo Urgent
Comment:
Reason For Exam: cp/upper abd pain
11/24/24 08:01
Heparin 5,000 units .ROUTE .STK-MED ONE
11/24/24 08:37
Ondansetron Injectable [Zofran] 4 mg .ROUTE .STK-MED ONE
11/24/24 08:38
HYDROmorphone [Dilaudid] 0.5 mg .ROUTE .STK-MED ONE
11/24/24 08:40
Ondansetron Injectable [Zofran] 4 mg IV NOW STA
11/24/24 08:41
HYDROmorphone [Dilaudid] 0.5 mg IV NOW STA
HYDROmorphone [Dilaudid] 0.5 mg IV NOW STA
Ondansetron Injectable [Zofran] 4 mg IV NOW STA
11/24/24 09:46
Labetalol HCl [Trandate] 10 mg IV NOW STA
11/24/24 09:50
EKG- Treatment ONCE
11/24/24 10:53
Troponin I Urgent
11/24/24 11:00
Electrocardiogram (*1) Urgent
Reason for Study: Chest Pain
11/24/24 12:20
Ondansetron Injectable [Zofran] 4 mg .ROUTE .ST-MED ONE
11/24/24 12:21
Ondansetron Injectable [Zofran] 4 mg IV NOW STA
Abnormal Lab Results
11/24/24
07:08
Hgb 18.4 H g/dL
(12.0-16.0)
Hct 51.4 H %
(37.0-47.0)
MCH 34.1 H pg
(27.0-31.0)
Abs Immat Gran (auto) 0.1 H 10^3/uL
(0-0.05)
Absolute Neuts (auto) 8.3 H 10^3/uL
(1.4-6.5)
Absolute Monos (auto) 0.7 H 10^3/uL
(0.1-0.6)
Immature Gran % 0.7 H %
(0-0.5)
Neutrophils % 79.8 H %
(42.2-75.2)
Lymphocytes % 11.2 L %
(20.5-51.1)
Sodium 134 L mmol/L
(135-145)
Glucose 200 H mg/dl
(70-99)
AST 61 H U/L
(14-36)
ALT 59 H U/L
(0-35)
11/24/24 07:08
11/24/24 07:08
Vital Signs
Initial and Last Documented VS:
Initial Vital Signs
Temp Pulse Resp Pulse Ox
98.5 F 87 20 92
11/24/24 06:59 11/24/24 06:59 11/24/24 06:59 11/24/24 06:59
Last Documented Vital Signs
Temp Pulse Resp BP Pulse Ox
98.5 F 92 27 164/95 98
11/24/24 06:59 11/24/24 13:10 11/24/24 13:10 11/24/24 13:10 11/24/24 13:10
MDM/Problems Addressed
MDM/Problems Addressed:
In light of patient's presenting symptoms, with differential blood pressure noted on each arm, CT angiogram chest abdomen pelvis ordered to evaluate for potential aortic dissection.
CT report reviewed and discussed with patient. Patient also noted to remain persistently hypertensive. As such, labetalol 10 mg IV provided with improved blood pressure.
During further observation, repeat troponin performed without any significant changes. However, patient with recurrent nausea sensation with diaphoresis and not feeling well. As such, discussed treatment options, including admission to the
hospital for further observation. However, at this time, patient does not wish to be admitted to the hospital. Patient will be discharged home to her spouse who will observe her carefully. Patient states that she will come back to the hospital
with recurrent or worsening symptoms, which I believe is reasonable.
*Pulse Oximetry
SaO2: 93
Oxygen Mode of Delivery: Room air
Patient hypoxic: no
*EKG
Interpreted by ED Provider?: Yes
EKG Intrepretation Date: 11/24/24
Heart Rate: 89
Rate: normal
Rhythm: sinus
[place]: normal axis
Interval: normal interval
Ischemia: non-specific ST changes
*Critical Care Note
Total Time (30-74mins, 75-104mins- exclusive of procedures): Not Applicable
ED Attending Note
-
Portions of this chart may have been created with voice recognition software.� Occasional wrong word or��sound alike� substitutions may have occurred due to the inherent limitations of voice recognition software.
Discharge Plan
Departure
Patient Disposition: Home (Routine Discharge)
Date of Disposition: 11/24/24
Time of Disposition: 13:33
Patient with high blood pressure during this ER visit?: Yes
Condition: Fair
Discharge Problem:
Hypertension, Chest pain
Instructions: High blood pressure - ED discharge instructions, Chest Pain PCP Follow Up
Prescriptions:
No Action
metoprolol succinate 50 mg tablet extended release 24 hr
50 mg PO BID
spironolactone 25 mg tablet
25 mg PO DAILY
lorazepam [Ativan] 0.5 mg Tablet
0.5 mg PO BIDPRN PRN (Reason: anxiety)
Patient Comments:
12/04/2023: last filled 11/16/23, 60 tabs for 30 days from [facility]
epinephrine [EpiPen 2-Stephon] 0.3 mg/0.3 mL auto-injector
0.3 mg IM Q5-15M PRN (Reason: anaphylaxis) Qty: 2 0RF
acetaminophen [Tylenol Extra Strength] 500 mg Tablet
500 mg PO Q6H PRN (Reason: pain)
buspirone 10 mg tablet
10 mg PO BID
Artificial Tears (PF) Dropperette
1 drp BOTH EYES QIDPRN PRN (Reason: dry eye)
duloxetine 60 mg capsule,delayed release(DR/EC)
60 mg PO DAILY
cannabidiol
1 dose PO HSPRN PRN (Reason: anxiety)
Referrals:
Malka Jordan MD [Family Provider, Internal Medicine]
Stand Alone Forms: Return to Work
Activity Restrictions/Additional Instructions:
As discussed, please follow-up with your primary care physician for reevaluation, or return to ED with recurrent symptoms.
Interventions
Interventions:
*Risk Screen - Suicide Last Done: 11/24/24 06:59
*General Assessment Last Done: 11/24/24 06:59
*Neglect/Abuse Screening Last Done: 11/24/24 06:59
*ED COVID-19 Vaccine History Last Done: 11/24/24 07:13
ED- Cardiac Assessment Last Done: 11/24/24 07:23
Discharge Date and Time
Print Language: TELUGU
[2024-11-24] MEDS: DILAUDID 0.5 MG IV (08:41)
[2024-11-24] MEDS: TRANDATE 10 MG IV (09:53)
[2024-11-24 11:41] LABS: Troponin I 0.013 ng/ml
== END | disposition home or self-care (01) ==
LOC: EMR 06:57
PROVIDERS: EMERGENCY PHYSICIAN Emergency Medicine; FAMILY PHYSICIAN Student in an Organized Health Care Education/Training Program
DX: I10 Essential (primary) hypertension (principal); R07.9 Chest pain, unspecified; Z87.891 Personal history of nicotine dependence; R11.0 Nausea; R61 Generalized hyperhidrosis
CPT/HCPCS: 96374; 96375; 99284; 96376; 71275; 74174; 80053; 83690; 84484; 85025; 85610; 93005; Q9967

== ENCOUNTER 2024-11-25 08:06 | Inpatient (IN) | payer OTHER, SELFPAY ==
[2024-11-25] VITALS (14 sets, daily range): BP systolic 132–225; BP diastolic 75–120; BMI 37.8; BMI 37.2
--- NOTE | 2024-11-25 04:16 | ED.GENMED ---
History of Present Illness
General
Chief Complaint: Abdominal Pain
Source: patient
Exam Limitations: none
Time Seen by Provider: 11/25/24 03:58
Nursing documentation reviewed up to this point in time: agreed with
History of Present Illness
History of Present Illness:
Note:
CHIEF COMPLAINT(S)
Abdominal pain, nausea, and vomiting.
HISTORY OF PRESENT ILLNESS
The patient is a 59-year-old female pmh of diverticulitis, asthma, celiac disease who who presents to the ER today with severe abdominal pain, nausea, and vomiting. The abdominal pain began yesterday and initially presented as a burning sensation,
potentially concerned for cardiac pain. Patient was seen yesterday in our ER for these symptoms. The patient expressed experiencing the pain overnight and throughout today despite being given powerful pain medication during a prior visit. She
reported vomiting green bile and expressed intolerance to even small sips of water, which she immediately vomited. The pain is located primarily in the upper abdomen and radiates to the back, waking her at night. She finds some relief by lying on
her right side. Additional symptoms include profuse sweating, possibly due to elevated blood pressure, which was patient noted at home to be 200/100 mmHg. Patient reports she has not been able to take her blood pressure meds because of the vomiting.
The patient has not eaten since yesterday and has been in her bedroom since returning home. She described a feeling of bloating and used milk of magnesium without result, which was uncharacteristic as it normally induces diarrhea for her. She has no
diarrhea or constipation.
PHYSICAL EXAM
General: Patient is well appearing and in no acute distress; non-toxic
Skin: Warm and dry, no rashes or lesions
Head: Normocephalic, atraumatic
Eyes: Sclera non-icteric. EOMs intact.
Cardiac: Tachycardia noted otherwise regular rhythm, no murmurs
Pulm: Normal respiratory effort, no wheezes, rales, or rhonchi
Abdomen: Epigastric abdominal tenderness to palpation with no guarding, normoactive bowel sounds.
Neuro: CN II-XII intact, no focal neurologic deficits.
Psychiatric: Appropriate mood and affect.
PROBLEM LIST
Acute:
- Severe abdominal pain with upper localization and back radiation
Chronic:
- Past history of diverticulitis with prior ostomy and subsequent reversal
PLAN
- Re-assess and review the findings from the previous computed tomography scan conducted yesterday for clarification
Patient had a CTA of the C/A/P yesterday which was negative for dissection, did show diverticulosis otherwise but it is otherwise unremarkable
- Administer antiemetic medications to manage nausea and vomiting
- Administer intravenous fluids for rehydration
- Consider an upper abdominal ultrasound to assess the gallbladder and other structures if necessary, depending on prior imaging results
- Monitor blood pressure and provide necessary medication adjustments
DIFFERENTIAL DIAGNOSIS
The Differential Diagnosis includes, in no particular order and is not limited to:
1. Peptic Ulcer Disease
2. Acute Pancreatitis
3. Gastroesophageal Reflux Disease
4. Cholecystitis
5. Acute Diverticulitis
6. Small Bowel Obstruction
7. Gastroenteritis
8. Biliary Colic
9. Gastritis
CHART REVIEW
-reviewed er physician documentation from 11/24/24,
MDM/DISPOSITION
The patient is a 59-year-old female pmh of diverticulitis, asthma, celiac disease who who presents to the ER today with severe abdominal pain, nausea, and vomiting. She was seen her yesterday for similar symptoms and had a cardiac workup and CTA of
the chest, abdomen, and pelvis which was unremarkable. She was offered admission for her persistent pain and vomiting, however patient opted to be discharged at that point. Patient reports that the vomiting would not stop and her pain has persisted.
Patient able to tolerate sips of water after zofran and compazine. Patient will require admission for intractable nausea and vomiting and further work-up of abdominal pain. Case discussed with ED attending who evaluated patient yesterday.
Past History
Past History
ED Past Medical History: HTN and Other
ED Past Surgical History: Bowel resection, Gynecological and Other
Social History
Tobacco: Former smoker
Alcohol: Occasional
Drug: None
Living: with family
Employment: Employed
Family History
Family History: Diabetes and CAD
Review of Systems
Review of Systems
All Other Systems: ROS reviewed and negative except as documented in HPI and ROS
Phy Exam
Physical Exam
Physical Exam:
see hpi
Course
Orders/Labs/Results
Orders:
Orders
11/25/24 04:26
0.9% Sodium Chloride 500 ml [Nss] 500 ml IV BOLUS
Ondansetron Injectable [Zofran] 4 mg IV NOW STA
US Abdomen Complete/Upper Urgent
Comment:
Reason For Exam: diffuse upper abdominal pain
11/25/24 05:11
Complete Blood Count/With Diff Urgent
Comprehensive Metabolic Panel Urgent
Lipase Urgent
11/25/24 06:15
Prochlorperazine [Compazine] 5 mg IV NOW STA
11/25/24 06:36
Pantoprazole [Protonix IV] 40 mg IV NOW STA
11/25/24 07:32
Admit/Transfer Patient As Directed
Co-Sign Provider:
Level of Care: Inpatient admission
Assign to:: Medical/Surgical
Physician / Group: Hospitalist
Diagnosis: Abdominal pain
Reason for Hospitalization: .
Expected length of stay greater than two midnights?: Yes
ELOS- Estimated Length of Stay in days: 3
I certify the patient meets the requirements for IP care: Yes
PRN Pain Medication Management As Directed
May give lesser potent ordered pain med per pt: Yes
preference::
Protocol:: Medication orders for pain may be administered in a
manner that supports deferring to patient preference
when the pt is:
- Requesting an ordered lesser potent pain medication.
Least to most potent pain medications are defined
as: acetaminophen < NSAID < tramadol < opioids
(morphine, oxycodone, hydromorphone).
- Requesting a lesser dose of the same medication IF
ORDERED.
- Requesting a less intrusive route of administration
if both routes are prescribed by the provider (PO <
IV).
Abnormal Lab Results
11/25/24
05:11
WBC 11.0 H 10^3/uL
(4.8-10.8)
Hgb 17.9 H g/dL
(12.0-16.0)
Hct 50.8 H %
(37.0-47.0)
MCH 34.4 H pg
(27.0-31.0)
Abs Immat Gran (auto) 0.1 H 10^3/uL
(0-0.05)
Absolute Neuts (auto) 9.1 H 10^3/uL
(1.4-6.5)
Absolute Lymphs (auto) 1.0 L 10^3/uL
(1.2-3.4)
Absolute Monos (auto) 0.7 H 10^3/uL
(0.1-0.6)
Immature Gran % 0.6 H %
(0-0.5)
Neutrophils % 82.6 H %
(42.2-75.2)
Lymphocytes % 8.8 L %
(20.5-51.1)
Chloride 97 L mmol/L
(98-107)
Glucose 221 H mg/dl
(70-99)
Calcium 10.3 H mg/dl
(8.4-10.2)
Total Bilirubin 1.4 H mg/dl
(0.2-1.3)
AST 40 H U/L
(14-36)
ALT 48 H U/L
(0-35)
11/25/24 05:11
11/25/24 05:11
Vital Signs
Initial and Last Documented VS:
Initial Vital Signs
Temp Pulse Resp BP Pulse Ox
98.2 F 102 26 174/120 97
11/25/24 03:36 11/25/24 03:36 11/25/24 03:36 11/25/24 03:36 11/25/24 03:36
Last Documented Vital Signs
Temp Pulse Resp BP Pulse Ox
97.6 F 83 16 225/104 96
11/25/24 07:33 11/25/24 07:33 11/25/24 07:33 11/25/24 07:26 11/25/24 07:35
*Pulse Oximetry
SaO2: 90
Oxygen Mode of Delivery: Room air
Patient hypoxic: no
*Critical Care Note
Total Time (30-74mins, 75-104mins- exclusive of procedures): Not Applicable
ED Attending Note
-
Portions of this chart may have been created with voice recognition software.� Occasional wrong word or��sound alike� substitutions may have occurred due to the inherent limitations of voice recognition software.
Discharge Plan
Departure
Patient Disposition: Admit
Date of Disposition: 11/25/24
Time of Disposition: 07:16
Admit to: Med/Surg
Presentation/result/management discussed w/ accepting MD/DO: Hospitalist
Patient with high blood pressure during this ER visit?: Yes
Condition: Fair
Discharge Problem:
Intractable nausea and vomiting, Abdominal pain
Interventions
Interventions:
*Risk Screen - Suicide Last Done: 11/25/24 03:36
*General Assessment Last Done: 11/25/24 03:59
*Neglect/Abuse Screening Last Done: 11/25/24 03:36
*ED- Fall Risk Assessment Last Done: 11/25/24 03:59
*ED COVID-19 Vaccine History Last Done: 11/25/24 03:59
CT-Duafrs-Kqibjdieox Assessment Last Done: 11/25/24 07:35
[2024-11-25] MEDS: ZOFRAN 4 MG IV (05:14)
[2024-11-25] MEDS: NSS 500 IV (05:15)
[2024-11-25 05:29] LABS: Hematocrit 50.8 % (37.0-47.0); Hemoglobin 17.9 g/dL (12.0-16.0); Mean Corp Hgb Conc. 35.2 g/dL (33.0-37.0); Mean Corpuscular Volume 97.7 fL (81.0-99.0); Nucleated Red Blood Cells % 0 %; Platelet Count 193 10^3/uL (130-400); Red Cell Dist. Width 12.4 % (11.5-14.5)
[2024-11-25 06:10] LABS: ALT (SGPT) 48 U/L (0-35); AST (SGOT) 40 U/L (14-36); Albumin 4.7 g/dl (3.5-5.0); Alkaline Phosphatase 110 U/L (38-126); Blood Urea Nitrogen 15 mg/dl (7-17); Calcium 10.3 mg/dl (8.4-10.2); Carbon Dioxide 30 mmol/L (22-30); Chloride 97 mmol/L (98-107); Estimated Creatinine Clearance 98 ml/min; Glucose 221 mg/dl (70-99); Lipase 131 U/L (23-300); Potassium 4.2 mmol/L (3.5-5.1); Sodium 135 mmol/L (135-145); Total Protein 7.7 g/dl (6.3-8.2); eGFR > 60.00
[2024-11-25] MEDS: COMPAZINE 5 MG IV (06:40)
[2024-11-25] MEDS: PROTONIX IV 40 MG IV ×2 (06:43→13:49)
--- NOTE | 2024-11-25 07:35 | HPS.HSE ---
Family Physician
-
Family Physician: Malka Jordan MD
Chief Complaint
-
Abdominal pain and vomiting for 3 days duration
History of Present Illness
59 years old female presented with abdominal pain, epigastric described as burning sensation with nausea and vomiting. Patient reported started suddenly. She presented to the emergency room yesterday and had CAT scan without acute findings. She
was medicated with pain medicine and antinausea, felt better and went back home. Her discomfort returned at home and started to throw up again. She said her vomitus was mostly bilious. No blood. No fever or chills. No diarrhea. No sick
contact. Ultrasound in the ER showed fatty liver with no evidence of cholelithiasis/gallbladder wall thickening.
Medical History
Past Medical History
Past Medical History: Reports Other (Hypertension, obesity, history of diverticulitis status post colostomy and reversal, depression/anxiety)
Past Surgical History: Reports Other (No recent major surgery)
Social History
Tobacco: Non-smoker
Alcohol: Occasional
Drug: Marijuana
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
Family History
Family History: Other (History of high blood pressure, strokes)
Allergies / Home Medications
Allergies reflects when Allergies were last updated in [employer].
Home Medications with original date entered in [employer]
Allergy/Medication List:
Allergies
Allergy/AdvReac Type Severity Reaction Status Date / Time
lisinopril Allergy Severe ineffective Verified 11/25/24 03:38
per
patient,
possible
sodium drop
tuna oil Allergy Severe Anaphylaxis Verified 11/25/24 03:38
Home Medications
metoprolol succinate 50 mg tablet,extended release 24 hr 50 mg PO BID Blood pressure 07/07/22
spironolactone 25 mg tablet 25 mg PO DAILY Blood pressure 07/07/22
lorazepam 0.5 mg tablet (Ativan) 0.5 mg PO BIDPRN PRN anxiety 09/21/22
buspirone 10 mg tablet 10 mg PO BID anxiety 11/24/24
dextran 70-hypromellose eye drops in a dropperette (Artificial Tears (PF) drops in a dropperette) 1 drp BOTH EYES QIDPRN PRN dry eye 11/24/24
duloxetine 60 mg capsule,delayed release 60 mg PO DAILY Mental Health/Anxiety 11/24/24
Medical Marijuana 2 gummy PO HSPRN PRN SLEEP 11/25/24
Review of Systems
-
History Source: Patient
A 12 point ROS was completed and negative except as noted: Yes
Constitutional: Denies Fever or Chills
EENT: Denies Sore Throat
Respiratory: Denies Cough
Cardiac: Denies Chest Pain
Abdomen/GI: Reports Abdominal Pain, Nausea and Vomiting; Denies Diarrhea or Constipated
: Denies Dysuria
Musculoskeletal: Denies Joint Pain or Muscle Stiffness
Neurological: Denies Headache or Numbness
Endocrine: Denies Temp Intolerance
Hematologic/Lymphatic: Denies Bruising
Psych: Denies Panic Disorder
Physical Exam
Vital Signs
Vital Signs
Temp Pulse Resp BP Pulse Ox
97.6 F 83 15 225/104 94
11/25/24 04:04 11/25/24 07:30 11/25/24 07:30 11/25/24 07:26 11/25/24 07:15
Physical Exam
General: No Apparent Distress
HEENT: Anicteric and Moist mucous membranes
Respiratory: Clear
Cardiac: S1/S2 and Regular Rhythm
GI: Soft, Non Tender and Non Distended
Genito-urinary: No Solis
Musculoskeletal: No Cyanosis and No Edema
Skin: No Rash or Jaundice
Neuro: AO x 3 and Nonfocal/grossly intact; No Slurred Speech, Facial Droop or Tremors
Psych: Calm and Intact Judgment/Insight
Laboratory Results
-
11/25/24 05:11
11/25/24 05:11
Laboratory Results
Total Bilirubin 1.4 mg/dl (0.2-1.3) H 11/25/24 05:11
AST 40 U/L (14-36) H 11/25/24 05:11
ALT 48 U/L (0-35) H 11/25/24 05:11
Alkaline Phosphatase 110 U/L (38-126) 11/25/24 05:11
Lipase 131 U/L (23-300) 11/25/24 05:11
Impression/Plan
-
59 years old female presented 3 days duration of abdominal pain and vomiting
# Abdominal Pain with nausea and vomiting
History of irritable bowel syndrome
Patient has history of abdominal pain in the past. CAT scan and ultrasound no acute findings. History of
Marijuana use but for several years
Patient denies fever, diarrhea or constipation
Mild leukocytosis
We will continue with symptomatic treatment with IV fluid, IV antinausea medication, pain medicine
Possibly induced by marijuana
# History of diverticulitis, intra-abdominal abscess, colostomy reversal
# Primary hypertension
No chest pain or headache.
# Diffuse fatty liver, recommend weight loss and
low-fat diet
Check hemoglobin A1c
# Obesity, BMI 37
# HLD
# Hx of depression/ Anxiety
Repeat EKG in a.m. after receiving antiemetics
# DVT prophylaxis with SC Heparin.
Total time spent to see the patient on the floor, examine the patient, review data and lab results, discuss treatment plan with patient, ER doctor, nursing staff around 75 minutes.
--- NOTE | 2024-11-25 08:34 | CM ---
Addendum entered by Gabriela Mandel 11/25/24 08:39:
Pt does have hx [facility] in past
Original Note:
CM reviewed chart and met with pt bedside in ED. Lives with her SO in one story home, 2 [address]
Independent in ADLs, personal care and ambulation at baseline, no DME.
No hx VN/SNF.
PCP: Malka Jordan
Pharmacy: [facility]
Discharge plan: Anticipate home, pending ongoing medical evaluation
--- NOTE | 2024-11-25 13:18 | EDRN ---
Patient taken to room 413-2 on stretcher by clinical technologist.
[2024-11-25] MEDS: HEPARIN 5000 UNITS SC ×2 (13:49→23:01)
[2024-11-25] MEDS: NSS (PRESERVATIVE FREE) 10 ML IV (13:49)
[2024-11-25] MEDS: NSS 1000 IV (14:56)
[2024-11-25] MEDS: TOPROL XL 50 MG PO (20:21)
[2024-11-25] MEDS: BUSPAR 10 MG PO (20:21)
[2024-11-25 21:31] LABS: Urine Character Clear (Clear)
[2024-11-26] MEDS: PERCOCET 5/325 1 TABLET PO ×2 (00:51→14:12)
[2024-11-26] MEDS: NSS 1000 IV (02:27)
[2024-11-26 03:00] VITALS: BP 165/107
[2024-11-26 08:00] VITALS: BP 164/95
[2024-11-26] MEDS: TOPROL XL 50 MG PO ×2 (08:01→19:45)
[2024-11-26] MEDS: CYMBALTA DELAYED RELEASE 60 MG PO (08:01)
[2024-11-26] MEDS: HEPARIN 5000 UNITS SC ×3 (08:02→23:24)
[2024-11-26] MEDS: PROTONIX IV 40 MG IV ×2 (08:02→19:46)
[2024-11-26] MEDS: NSS (PRESERVATIVE FREE) 10 ML IV ×2 (08:02→19:46)
[2024-11-26] MEDS: ALDACTONE 25 MG PO (08:03)
[2024-11-26] MEDS: BUSPAR 10 MG PO ×2 (08:03→19:45)
[2024-11-26 08:06] VITALS: BP 164/95
[2024-11-26 09:09] LABS: Hematocrit 46.6 % (37.0-47.0); Hemoglobin 16.1 g/dL (12.0-16.0); Mean Corp Hgb Conc. 34.5 g/dL (33.0-37.0); Mean Corpuscular Volume 98.7 fL (81.0-99.0); Platelet Count 167 10^3/uL (130-400); Red Cell Dist. Width 12.4 % (11.5-14.5)
--- NOTE | 2024-11-26 09:29 | W.PN.HOSP.TC ---
Today's Communication/Plan
-
discharge if she tolerates diet
Assessment / Plan
Assessment / Plan
Physical Exam
General: No Apparent Distress
HEENT: Anicteric and Moist mucous membranes
Respiratory: Clear
Cardiac: S1/S2 and Regular Rhythm
GI: Soft, Non Tender and Non Distended
Genito-urinary: No Solis
Musculoskeletal: No Cyanosis and No Edema
Skin: No Rash or Jaundice
Neuro: AO x 3 and Nonfocal/grossly intact; No Slurred Speech, Facial Droop or Tremors
Psych: Calm and Intact Judgment/Insight
59 years old female presented 3 days duration of abdominal pain and vomiting
# Abdominal Pain with nausea and vomiting, seems c/w acute gastroenteritis
History of irritable bowel syndrome
Much improved.
Patient has history of abdominal pain in the past. CAT scan and ultrasound no acute findings. History of
Marijuana use but for several years
Patient denies fever, diarrhea or constipation
Mild leukocytosis which resolved
She is feeling better, advance diet and dc if tolerate diet
S/P IV fluid, IV antinausea medication, pain medicine
Possibly induced by marijuana or food related but no diarrhea.
No fevers
# History of diverticulitis, intra-abdominal abscess, colostomy reversal
CT A/P did not show acute findings
# Primary hypertension
No chest pain or headache.
# Diffuse fatty liver, recommend weight loss and
low-fat diet
Hemoglobin A1c 6.6 c/w Diabetes. I had long conversation with the patient and her . Her primary care doctor is monitoring hemoglobin A1c and I advised the patient to follow-up with PCP for treatment of fatty liver/prediabetes/diabetes. I
also gave her information to follow-up with GI doctor regarding fatty liver
# Obesity, BMI 37
# HLD
# Hx of depression/ Anxiety
Repeat EKG with no prolongation to QT with no significant changes to baseline EKG.
# DVT prophylaxis with SC Heparin.
Total discharge time spent to see the patient on the floor, examine the patient, review data and lab results, discuss discharge plan with patient, , nursing staff around 67 minutes.
Anticipated Discharge: Today
Subjective/Interval History
-
Date of Service: November 26, 2024
No abdominal pain
No sob
No fevers
Objective Data
-
Labs:
Laboratory Results
11/26/24
08:58
WBC 8.0
Hgb 16.1 H
Hct 46.6
Plt Count 167
Sodium Pending
Potassium Pending
Chloride Pending
Carbon Dioxide Pending
BUN Pending
Creatinine Pending
Glucose Pending
Calcium Pending
Total Bilirubin Pending
AST Pending
ALT Pending
Alkaline Phosphatase Pending
Vital Signs:
Vital Signs
Temp Pulse Resp BP Pulse Ox
98 F 90 18 164/95 96
11/26/24 08:00 11/26/24 08:01 11/26/24 08:00 11/26/24 08:01 11/26/24 08:00
I&O
11/25/24 11/26/24 11/27/24
06:59 06:59 06:59
Intake Total 1920 / 1920 480 / 480
Output Total 1150 / 1150 275 / 275
Balance 770 / 770 205 / 205
[2024-11-26 09:48] LABS: ALT (SGPT) 36 U/L (0-35); AST (SGOT) 42 U/L (14-36); Albumin 4.3 g/dl (3.5-5.0); Alkaline Phosphatase 92 U/L (38-126); Blood Urea Nitrogen 9 mg/dl (7-17); Calcium 9.5 mg/dl (8.4-10.2); Carbon Dioxide 22 mmol/L (22-30); Chloride 104 mmol/L (98-107); Estimated Creatinine Clearance 97 ml/min; Glucose 167 mg/dl (70-99); Potassium 4.5 mmol/L (3.5-5.1); Sodium 136 mmol/L (135-145); Total Protein 6.9 g/dl (6.3-8.2); eGFR > 60.00
[2024-11-26 10:05] LABS: Glycohemoglobin (HgbA1c) 6.6 % (4.0-5.6)
--- NOTE | 2024-11-26 14:28 | CM ---
Chart reviewed. Patient will d/c today if she tolerates diet
No CM needs at this time
Plan: Home, no needs
[2024-11-26 15:16] VITALS: BP 165/07
[2024-11-26] MEDS: TYLENOL 650 MG PO (23:28)
[2024-11-26 23:32] VITALS: BP 129/69
[2024-11-27] MEDS: PERCOCET 5/325 1 TABLET PO (00:05)
[2024-11-27 07:48] VITALS: BP 150/111
[2024-11-27] MEDS: TOPROL XL 50 MG PO (08:10)
[2024-11-27] MEDS: CYMBALTA DELAYED RELEASE 60 MG PO (08:10)
[2024-11-27] MEDS: ALDACTONE 25 MG PO (08:10)
[2024-11-27] MEDS: BUSPAR 10 MG PO (08:10)
[2024-11-27] MEDS: NSS (PRESERVATIVE FREE) 10 ML IV (08:10)
[2024-11-27] MEDS: HEPARIN 5000 UNITS SC (08:11)
[2024-11-27] MEDS: PROTONIX IV 40 MG IV (08:11)
--- NOTE | 2024-11-27 08:38 | W.PN.HOSP.TC ---
Today's Communication/Plan
-
dc later today
Assessment / Plan
Assessment / Plan
Physical Exam
General: No Apparent Distress
HEENT: Anicteric and Moist mucous membranes
Respiratory: Clear
Cardiac: S1/S2 and Regular Rhythm
GI: Soft, Non Tender and Non Distended
Genito-urinary: No Solis
Musculoskeletal: No Cyanosis and No Edema
Skin: No Rash or Jaundice
Neuro: AO x 3 and Nonfocal/grossly intact; No Slurred Speech, Facial Droop or Tremors
Psych: Calm and Intact Judgment/Insight
59 years old female presented 3 days duration of abdominal pain and vomiting
# Abdominal Pain with nausea and vomiting, seems c/w acute gastroenteritis
History of irritable bowel syndrome
Much improved.
Patient has history of abdominal pain in the past. CAT scan and ultrasound no acute findings. History of
Marijuana use but for several years
Patient denies fever, diarrhea or constipation
Mild leukocytosis which resolved
She is feeling better, advance diet and dc if tolerate diet
S/P IV fluid, IV antinausea medication, pain medicine
Possibly induced by marijuana or food related but no diarrhea.
No fevers
Appreciate GI doctor
# History of diverticulitis, intra-abdominal abscess, colostomy reversal
CT A/P did not show acute findings
# Primary hypertension
No chest pain or headache.
# Diffuse fatty liver, recommend weight loss and
low-fat diet
Hemoglobin A1c 6.6 c/w Diabetes. I had long conversation with the patient and her . Her primary care doctor is monitoring hemoglobin A1c and I advised the patient to follow-up with PCP for treatment of fatty liver/prediabetes/diabetes. I
also gave her information to follow-up with GI doctor regarding fatty liver
# Obesity, BMI 37
# HLD
# Hx of depression/ Anxiety
Repeat EKG with no prolongation to QT with no significant changes to baseline EKG.
# DVT prophylaxis with SC Heparin.
Total discharge time spent to see the patient on the floor, examine the patient, review data and lab results, discuss discharge plan with patient, , nursing staff around 67 minutes.
Anticipated Discharge: Today
Subjective/Interval History
-
Date of Service: November 27, 2024
she is feeling better
she wanted to see GI doctor
Objective Data
-
Vital Signs:
Vital Signs
Temp Pulse Resp BP Pulse Ox
98.0 F 87 20 150/111 98
11/27/24 07:48 11/27/24 08:10 11/27/24 07:48 11/27/24 08:10 11/27/24 07:48
I&O
11/26/24 11/27/24 11/28/24
06:59 06:59 06:59
Intake Total 1920 / 1920 1580 / 1580
Output Total 1150 / 1150 275 / 275
Balance 770 / 770 1305 / 1305
--- NOTE | 2024-11-27 09:14 | CON.GI ---
Addendum entered and electronically signed by Karina Gerardo DO 11/27/24 13:13:
The patient was seen and examined by me independently in collaboration with the nurse practitioner.
Past medical history/social history/medications/allergies/family history reviewed.
Lab data and imaging data reviewed.
Nhi Fisher is a 59-year-old female with past medical history of diverticulitis status post jerez's procedure with reversal. Last colonoscopy on 10/24/[address] Jarrett, 2 small tubular adenomas were removed. She has a history of bleeding
hemorrhoids requiring banding, most recently on 11/19/24. Reports erratic bowels, improved with fermented probiotic pickles. She developed worsening indigestion, intense burning substernal discomfort with associated nausea and regurgitation and
emesis, typically at night, which started 11/21 and has persisted. She is reluctant to take any medications, states Protonix has resolved all of her symptoms and feels well now. She does try and avoid laying down for about 3 hours following dinner and
elevated her head of the bed.
Labs on admission notable for elevated liver enzymes, Tbili 1.4 --> 1.3, AST 40 ->42, ALT 48 --> 36; hgb elevated to 17.9 -->16.1
CTA 11/24/24: Mild soft tissue attenuation within the anterior midline abdominal wall related to previous surgical incision. In the left anterior mid abdomen, small herniation containing fat measuring approximately 4 cm, secondary to previous
colostomy with reversal.Minor diverticulosis. No evidence of acute diverticulitis. Opaque suture material representing rectosigmoid anastomosis. No dilated bowel loops or evidence of bowel obstruction. No apparent bowel wall thickening. Fatty
infiltration of the liver, no ductal dilation. Normal gallbladder. Normal pancreas.
Abdominal US: Mild hepatomegaly, diffuse fatty liver. No ductal dilation. GB is physiologically distended with no evidence of cholelithiasis, GB wall thickening or biliary tract dilatation.
Indigestion/Nausea/Vomiting-- Reflux vs. PUD vs. GB/biliary vs. gastroparesis vs. hyperemesis canabis, less likely given the acuity and pattern of symptoms
--improved with PPI
-patient ate a meal this morning with no recurrence of symptoms, recommend d/c on daily PPI and outpatient GI follow-up for EGD
-if EGD negative will consider MRI/MRCP vs. HIDA given elevated LFTs, but suspect this is due to fatty liver
-also recommend discharging with bowel regimen
#Fatty Liver-- with elevated LFTs
-outpatient f/u for comprehensive serologic workup and fibrosis assessment
Okay for d/c today, will arrange for outpatient f/u
Original Note:
Consultation
-
Date/Time Consultation Requested: 11/27/24629
Date/Time Consultation Performed: 11/27/24914
Requesting Provider: Smiley Beltrán MD
Performing Provider: ARACELI Galan, Yanet Gerardo DO
Reason for Consultation: epigastric pain
Medical History
Chief Complaint / HPI
Chief Complaint: abdominal pain
History of Present Illness:
Pt is a 59yo with hx colon polyps, hemorrhoidal banding HTN, hyperlipidemia, depression/anxiety, diverticulitis with prior colostomy and reversal, IBS, obesity, mastoidectomy, leg vein ablation presents to ER with epigastric burning with nausea and
vomiting. Pt was in ER with imaging and labs 11/24 then returned with continued symptoms. CTA angio noted with no dissection, mild intrarenal AAA, no PE, fatty liver, diverticulosis no diverticulitis, US with fatty liver, no cholelithiais, GBWT or
biliary tract dilation. pancreas not seen. Labs with mild LFT elevation with bili 1.4, AST 40, ALT 48, alk phos 110.
In review with patient she admits to eating red meat 11/21 with no recent red meat and onset of pain after second meal on 11/22. She persisted with post prandial pain with vomiting bile with ER visit 11/24 and 11/25. She admits to occasional rectal
bleeding with improvement with recent hemorrhoidal banding and issues with constipation after reversal of ostomy. She otherwise denies odynophagia, GERD, diarrhea.
Past Medical History
Past Medical History: HTN, Hypercholesterolemia, Psychiatric (depression/anxiety ) and Other (obesity, diverticulitis with prior colostomy and reversal, IBS, fatty liver, colon polyps,)
Past Surgical History: Other (mastoidectomy, leg vein ablation, hemorrhoidal banding)
Social History
Tobacco: Non-Smoker
Alcohol: None
Drug: Marijuana
Personal:
Living: With Family
Employment: Employed
Family History
Family History: Reviewed & Not Pertinent
Allergies / Home Medications
Allergy/AdvReac Type Severity Reaction Status Date / Time
lisinopril Allergy Severe ineffective Verified 11/25/24 03:38
per
patient,
possible
sodium drop
tuna oil Allergy Severe Anaphylaxis Verified 11/25/24 03:38
�Medication �Instructions �Recorded
metoprolol succinate 50 mg 50 mg PO BID Blood pressure 07/07/22
tablet,extended release 24 hr
spironolactone 25 mg tablet 25 mg PO DAILY Blood pressure 07/07/22
lorazepam 0.5 mg tablet (Ativan) 0.5 mg PO BIDPRN PRN anxiety 09/21/22
buspirone 10 mg tablet 10 mg PO BID anxiety 11/24/24
dextran 70-hypromellose eye drops 1 drp BOTH EYES QIDPRN PRN dry eye 11/24/24
in a dropperette (Artificial Tears
(PF) drops in a dropperette)
duloxetine 60 mg capsule,delayed 60 mg PO DAILY Mental 11/24/24
release Health/Anxiety
Medical Marijuana 2 gummy PO HSPRN PRN SLEEP 11/25/24
Review of Systems
-
History Source: Patient
Constitutional: Reports Weight Gain (over time)
EENT: Reports No Symptoms
Respiratory: Reports No Symptoms
Cardiac: Reports No Symptoms
Abdomen/GI: Reports Abdominal Pain, Nausea, Vomiting, Constipated and Bloody Stools (occasional )
: Reports No Symptoms
Musculoskeletal: Reports No Symptoms
Skin: Reports No Symptoms
Neurological: Reports Weakness
Endocrine: Reports No Symptoms
Hematologic/Lymphatic: Reports Bleeding
Vital Signs
Temp Pulse Resp BP Pulse Ox
98.0 F 87 20 150/111 98
11/27/24 07:48 11/27/24 08:10 11/27/24 07:48 11/27/24 08:10 11/27/24 07:48
Physical Exam
Exam
General: Well Developed, Well Nourished and No Apparent Distress
HEENT: Normocephalic and Anicteric
Respiratory: Clear
Cardiac: Regular Rhythm
GI: Soft, Non Tender and Non Distended
Musculoskeletal: No Clubbing and No Cyanosis
Skin: Warm and Dry
Neuro: Awake, Alert and AO x 3
Psych: Calm
Results
WBC 8.0 10^3/uL (4.8-10.8) 11/26/24 08:58
Hgb 16.1 g/dL (12.0-16.0) H 11/26/24 08:58
Hct 46.6 % (37.0-47.0) 11/26/24 08:58
MCV 98.7 fL (81.0-99.0) 11/26/24 08:58
Plt Count 167 10^3/uL (130-400) 11/26/24 08:58
Absolute Neuts (auto) 9.1 10^3/uL (1.4-6.5) H 11/25/24 05:11
Sodium 136 mmol/L (135-145) 11/26/24 08:58
Potassium 4.5 mmol/L (3.5-5.1) 11/26/24 08:58
Chloride 104 mmol/L (98-107) 11/26/24 08:58
Carbon Dioxide 22 mmol/L (22-30) 11/26/24 08:58
BUN 9 mg/dl (7-17) 11/26/24 08:58
Creatinine 0.7 mg/dL (0.6-1.0) 11/26/24 08:58
Calcium 9.5 mg/dl (8.4-10.2) 11/26/24 08:58
Total Bilirubin 1.3 mg/dl (0.2-1.3) 11/26/24 08:58
AST 42 U/L (14-36) H 11/26/24 08:58
ALT 36 U/L (0-35) H 11/26/24 08:58
Alkaline Phosphatase 92 U/L (38-126) 11/26/24 08:58
Lipase 131 U/L (23-300) 11/25/24 05:11
Diagnostic Image Results:
11/25/24 US Abdomen Complete/Upper
IMPRESSION: Mild hepatomegaly with findings compatible with diffuse fatty liver.
No evidence of cholelithiasis, gallbladder wall thickening or biliary tract dilatation.
Pancreas significantly obscured, most likely by overlying bowel gas.
11/24/24 CT Chest/abd/pelvis Angio W/wo
Ascending thoracic aorta is top normal in size without focal aneurysm or dissection. Mild infrarenal abdominal aortic aneurysm measuring up to 2 cm. No dissection.
No evidence of central pulmonary embolism.
Fatty infiltration of liver.
No obstructive uropathy.
No acute inflammatory process within the abdomen or pelvis. Minor diverticulosis without acute diverticulitis. No bowel obstruction.
Prior GI Procedures:
EGD: none
colonoscopy 2023- Dr. Jarrett
- Two diminutive polyps in the rectum, removed with a
jumbo cold forceps. Resected and retrieved.
- Patent end-to-end colo-rectal anastomosis,
characterized by healthy appearing mucosa.
- Diverticulosis in the descending colon.
- Hemorrhoids.
bx TA
Assessment / Plan
-
Pt is a 59yo with hx colon polyps, hemorrhoidal banding HTN, hyperlipidemia, depression/anxiety, diverticulitis with prior colostomy and reversal, IBS, obesity, mastoidectomy, leg vein ablation presents to ER with epigastric burning with nausea and
vomiting. Pt was in ER with imaging and labs 11/24 then returned with continued symptoms. CTA angio noted with no dissection, mild intrarenal AAA, no PE, fatty liver, diverticulosis no diverticulitis, US with fatty liver, no cholelithiasis, GBWT or
biliary tract dilation. pancreas not seen. Labs with mild LFT elevation with bili 1.4, AST 40, ALT 48, alk phos 110.
-epigastric pain with vomiting
-constipation
-mild LFT elevation
-hx IBS
-fatty liver - not known to pt
other med problems:
colon polyps, hemorrhoidal banding HTN, hyperlipidemia, depression/anxiety, diverticulitis with prior colostomy and reversal, IBS, obesity, mastoidectomy, leg vein ablation
PLAN:
Etiology of abdominal pain related to biliary colic with mild LFT elevation and post prandial pain, gastroenteritis as now feeling better, PUD though no NSAID use, GERD as improved with PPI, constipation related, marijuana side effect but on same
daily dose for several years, vs other denies NSAID use or GPL1 use.
see is also noted with new incidental fatty liver on imaging
pt with full liquid this am and tolerating advance to low fat lunch if tolerates consider d/c later today
if persistent pain trend LFT's and consider MRI vs EGD to rule out other pathology
discussed fatty liver and advised OP follow up, wt loss
NSAID avoidance
cont PPI
consider trial off Marijuana
bowel regiment to prevent constipation
-
-
Thank you for consultation and allowing me to participate in the patient's care. Please call the front office medical assistant GI physician during the after hours with any questions or concerns.
[2024-11-27 15:42] VITALS: BP 179/115
--- NOTE | 2024-11-27 15:46 | W.PN.UPDATE ---
Addendum entered and electronically signed by Wyatt Vargas MD 11/27/24 17:13:
bp 138/80 final reading
Addendum entered and electronically signed by Wyatt Vargas MD 11/27/24 17:12:
Follow-up blood pressure improved after medications. She can resume her home regimen and she can be discharged today as planned.
Original Note:
Update Note
Progress Note Update
Cross cover-patient's blood pressure elevated 183/105; cancel d/c given hydralazine 10 mg IV x 1. Reevaluate if she can go later, if not she will need to go tomorrow.
[2024-11-27] MEDS: APRESOLINE 10 MG IV (16:11)
[2024-11-27] MEDS: ATIVAN 0.5 MG PO (16:17)
[2024-11-27 17:28] VITALS: BP 138/80
--- NOTE | 2024-11-27 17:44 | PTCARENOTE ---
Pt blood pressure elevated prior to dc, hydralazine x's one provided with positive results and pt able to dc. paperwork reviewed and copy provided. Pt iv removed. All belongings from room taken by pt. pt escorted to husbands waiting car by staff via
w/c.
--- NOTE | 2024-11-28 06:22 | W.DCSUMMARY ---
Discharge Summary
Discharge Data
Date of Admission: 11/25/24
Date of Discharge: 11/27/24
-
Pending Results: No
Hospital Course
59 years old female admitted with abdominal pain, nausea and vomiting. Abdominal CAT scan did not show acute findings. She did not have fever. She had mild leukocytosis. She visited the emergency room on November 24 was discharged home. She came
back on November 25 due to persistent symptoms and she was admitted to the hospital. Abdominal ultrasound showed mild hepatomegaly, diffuse fatty liver, no ductal dilation. Patient received supportive care with intravenous fluid, pain medicine. Diet
was advanced slowly. She was started on Protonix pump inhibitor. Patient was counseled regarding fatty liver and advised to follow-up with primary care doctor, GI, to lose weight and follow healthy lifestyle. Hemoglobin A1c was elevated on 6.6.
Patient reported that she was being followed by her primary care doctor in that regard. Gastroenterology was consulted. Differential diagnosis include reflux, gastritis, gastroparesis, cannabis induced hyperemesis. Patient started to improve.
Diet was advanced slowly. Gastroenterology recommended outpatient follow-up. Patient remained hemodynamically stable. She was discharged home in a stable condition.
Discharge Plan
-
Patient Disposition: Home (Routine Discharge)
Discharge Diagnosis/Procedures: Acute gastroenteritis
Fatty liver
Elevated hemoglobin A1c 6.6
Diet: As tolerated and Low Fat
Referrals:
Malka Jordan MD [Family Provider, Internal Medicine] - in one to two weeks
Karina Gerardo DO [Active, Gastroenterology] - 12/03/24 3:00 pm
Referral Note: follow up with noted abdominal pain and to review for fatty liver on imaging
Prescriptions:
New
ondansetron HCl 4 mg tablet
4 mg PO Q8H PRN (Reason: nausea and vomiting) Qty: 20 0RF
pantoprazole [Protonix] 40 mg tablet,delayed release (DR/EC)
40 mg PO DAILY Qty: 30 0RF
Continued
metoprolol succinate 50 mg tablet extended release 24 hr
50 mg PO BID
spironolactone 25 mg tablet
25 mg PO DAILY
lorazepam [Ativan] 0.5 mg Tablet
0.5 mg PO BIDPRN PRN (Reason: anxiety)
buspirone 10 mg tablet
10 mg PO BID
Artificial Tears (PF) Dropperette
1 drp BOTH EYES QIDPRN PRN (Reason: dry eye)
duloxetine 60 mg capsule,delayed release(DR/EC)
60 mg PO DAILY
Medical Marijuana
2 gummy PO HSPRN PRN (Reason: SLEEP)
Discharge Orders:
Discharge Patient (As Directed); Ordered 11/27/24
Ordered By: Wyatt Vargas
Discharge Date and Time
Discharge Date/Time: 11/27/24 18:13
Print Language: LAO
== END 2024-11-27 18:13 | disposition home or self-care (01) | DRG 392 ==
LOC: 4 EAST ACU 08:06
PROVIDERS: Physician Assistant; ADMITTING PHYSICIAN Internal Medicine; EMERGENCY PHYSICIAN Student in an Organized Health Care Education/Training Program; FAMILY PHYSICIAN Student in an Organized Health Care Education/Training Program; OTHER PHYSICIAN Internal Medicine
DX: K52.9 Noninfective gastroenteritis and colitis, unspecified (principal); K57.32 Diverticulitis of large intestine without perforation or abscess without bleeding; K90.0 Celiac disease; J45.909 Unspecified asthma, uncomplicated; I10 Essential (primary) hypertension; E66.9 Obesity, unspecified; K76.0 Fatty (change of) liver, not elsewhere classified; E11.9 Type 2 diabetes mellitus without complications; I71.43 Infrarenal abdominal aortic aneurysm, without rupture; E78.00 Pure hypercholesterolemia, unspecified; F32.A Depression, unspecified; F41.9 Anxiety disorder, unspecified; Z68.37 Body mass index [BMI] 37.0-37.9, adult; Z88.8 Allergy status to other drugs, medicaments and biological substances; Z91.018 Allergy to other foods; Z87.891 Personal history of nicotine dependence; Z83.3 Family history of diabetes mellitus; Z82.49 Family history of ischemic heart disease and other diseases of the circulatory system; Z86.0100 Personal history of colon polyps, unspecified
CPT/HCPCS: 76700; 80053; 81003; 83036; 83690; 85025; 85027; 93005; 96361; 96374; 96375; 99284

== ENCOUNTER 2024-12-11 06:21 | Day surgery (SDC) | payer OTHER, SELFPAY | END 2024-12-11 13:43 | disposition home or self-care (01) | LOC: GI 06:21 | PROVIDERS: ATTENDING PHYSICIAN Internal Medicine | DX: R10.13 Epigastric pain (principal); K22.89 Other specified disease of esophagus; K25.9 Gastric ulcer, unspecified as acute or chronic, without hemorrhage or perforation; R11.2 Nausea with vomiting, unspecified; K29.70 Gastritis, unspecified, without bleeding; K29.50 Unspecified chronic gastritis without bleeding; K31.89 Other diseases of stomach and duodenum | CPT/HCPCS: 43239; 88305; 88342 ==

== ENCOUNTER 2025-01-13 10:05 | Emergency (ER) | payer OTHER, SELFPAY ==
[2025-01-13 10:09] VITALS: BP 160/90
[2025-01-13 10:10] VITALS: BP 160/90
[2025-01-13 10:19] VITALS: BMI 38.3
--- NOTE | 2025-01-13 10:37 | ED.GENMED ---
History of Present Illness
<Cheryl Mcclellan MD, Resident - Last Filed: 01/13/25 13:48>
General
Chief Complaint: Chest Problem
Source: patient
Exam Limitations: none
Time Seen by Provider: 01/13/25 10:06
History of Present Illness
History of Present Illness:
Patient is a 59-year-old female who presents to the emergency department directly from urgent care for chest tightness and shortness of breath. Patient has a history of hypertension, hyperlipidemia, diverticulitis, asthma, celiac disease, colostomy
reversal, and obesity. Symptoms started 2 to 3 days ago prior to presentation with cough and a heavy sensation over the chest that gave discomfort. Initially she thought that maybe her chest symptoms were due to a dirty air conditioner filter for
the home. She had her change out the air conditioner filter which was filthy and covered with possibly moldy substances. Following the filter changed the patient's symptoms did not improve. Her symptoms culminated in code of extreme
shortness of breath in the middle of the night and she stated that it felt as if someone was 'standing on my chest.' she got out of bed and got marginal relief after standing upwards but unfortunately she was unable to catch her breath. patient
states that she snores at night and her has commented multiple times that she has snored while sleeping. She sometimes wakes up at night gasping for breath. She took her blood pressure with a home blood pressure device and found that blood
pressure was in 'the triple digits' and states that it was elevated. he took 10 mg of hydralazine and did not feel any better and worried that her symptoms were due to her anxiety so she took 0.5 mg of Ativan. Unfortunately, these medications did
not improve her symptoms. She decided to work through the discomfort and started to drive to work. She works at [employer] as a [employer]. As she was driving to work she became dizzy and the discomfort continued so she diverted towards a local
urgent care. On assessment at the urgent care they transported by ambulance to the emergency department.
If applicable-neuro sx onset
Onset of symptoms known: Yes
Date of onset of symptoms: 01/11/25
Past History
<Cheryl Mcclellan MD, Resident - Last Filed: 01/13/25 13:48>
Past History
ED Past Medical History: HTN, Psychiatric ( anxiety) and Other
ED Past Surgical History: Bowel resection, Gynecological and Other
Patient has exhibited threatening behavior?: No
Social History
Tobacco: Former smoker
Alcohol: Occasional
Drug: None
Living: with family
Employment: Employed
Family History
Family History: Diabetes, CAD and Other ( mother had 2 strokes, father had cardiac issues plus diabetes)
Review of Systems
<Cheryl Mcclellan MD, Resident - Last Filed: 01/13/25 13:48>
Review of Systems
Constitutional: Reports no symptoms
EENT: Reports no symptoms
Respiratory: Reports cough
Cardiac: Reports other ( chest tightness)
ABD/GI: Reports no symptoms
: Reports no symptoms
Musculoskeletal: Reports no symptoms
Skin: Reports no symptoms
Neurological: Reports no symptoms
Endocrine: Reports no symptoms
Hematologic/Lymphatic: Reports no symptoms
Psychiatric: Reports anxiety and other ( labile)
Phy Exam
<Cheryl Mcclellan MD, Resident - Last Filed: 01/13/25 13:48>
General Physical Exam
General Presentation: well appearing
General age: appears stated age
General Skin: warm and dry
General Habitus: normal
General Mental: alert, anxious, tearful and other ( labile)
General Hydration: appears well hydrated
Cardiovascular Exam
Cardiovascular Exam: regular rate/rhythm, no edema, no gallop, no JVD, no murmur and normal peripheral pulses
Pulmonary Exam
Pulmonary Exam: lungs clear, no respiratory distress, no rales, chest non tender, no crackles, no rhonchi, no stridor, no wheezing and no cough
Cough: non productive cough
Psychiatric Exam
Psychiatric Exam: anxious and labile
Course
<Cheryl Mcclellan MD, Resident - Last Filed: 01/13/25 13:48>
Orders/Labs/Results
Orders:
Orders
01/13/25 10:07
Electrocardiogram (*1) Urgent
Reason for Study: Chest Pain
EKG- Treatment ONCE
01/13/25 10:21
CXR2 [CR Chest - 2 Views ] Urgent
Comment:
Reason For Exam: chest pain
01/13/25 10:24
CMP [Comprehensive Metabolic Panel] Urgent
Complete Blood Count/No Diff Urgent
Troponin I Urgent
01/13/25 10:26
COVID-19 Antigen Urgent
Source: Nasal Swab
Influenza A+B Rapid Molecular Urgent
ZAINAB Source: Nasal Swab
Specimen Description:
01/13/25 11:09
Ipratropium/Albuterol Sulfate [Duoneb] 3 ml INH R NOW STA
01/13/25 12:42
Azithromycin [Zithromax] 500 mg PO NOW STA
01/13/25 12:54
Discharge Patient As Directed
Month Pneumococcal vaccine administered: February
Year Pneumococcal vaccine administered: 2016
Abnormal Lab Results
01/13/25
10:24
Hgb 16.3 H g/dL
(12.0-16.0)
MCH 33.7 H pg
(27.0-31.0)
Creatinine 0.5 L mg/dL
(0.6-1.0)
Glucose 154 H mg/dl
(70-99)
AST 61 H U/L
(14-36)
ALT 44 H U/L
(0-35)
01/13/25 10:24
01/13/25 10:24
Vital Signs
Initial and Last Documented VS:
Initial Vital Signs
Temp Pulse Resp BP Pulse Ox
97.8 F 95 16 160/90 95
01/13/25 10:09 01/13/25 10:09 01/13/25 10:09 01/13/25 10:09 01/13/25 10:09
Last Documented Vital Signs
Temp Pulse Resp BP Pulse Ox
97.7 F 90 18 181/92 94
01/13/25 13:07 01/13/25 13:07 01/13/25 13:07 01/13/25 13:07 01/13/25 13:07
<Donal Bartlett, DO - Last Filed: 01/13/25 11:23>
Orders/Labs/Results
Orders:
Orders
01/13/25 10:07
Electrocardiogram (*1) Urgent
Reason for Study: Chest Pain
EKG- Treatment ONCE
01/13/25 10:21
CXR2 [CR Chest - 2 Views ] Urgent
Comment:
Reason For Exam: chest pain
01/13/25 10:24
CMP [Comprehensive Metabolic Panel] Urgent
Complete Blood Count/No Diff Urgent
Troponin I Urgent
01/13/25 10:26
COVID-19 Antigen Urgent
Source: Nasal Swab
Influenza A+B Rapid Molecular Urgent
ZAINAB Source: Nasal Swab
Specimen Description:
01/13/25 11:09
Ipratropium/Albuterol Sulfate [Duoneb] 3 ml INH R NOW STA
01/13/25 12:42
Azithromycin [Zithromax] 500 mg PO NOW STA
01/13/25 12:54
Discharge Patient As Directed
Month Pneumococcal vaccine administered: February
Year Pneumococcal vaccine administered: 2016
Abnormal Lab Results
01/13/25
10:24
Hgb 16.3 H g/dL
(12.0-16.0)
MCH 33.7 H pg
(27.0-31.0)
Creatinine 0.5 L mg/dL
(0.6-1.0)
Glucose 154 H mg/dl
(70-99)
AST 61 H U/L
(14-36)
ALT 44 H U/L
(0-35)
01/13/25 10:24
01/13/25 10:24
Vital Signs
Initial and Last Documented VS:
Initial Vital Signs
Temp Pulse Resp BP Pulse Ox
97.8 F 95 16 160/90 95
01/13/25 10:09 01/13/25 10:09 01/13/25 10:09 01/13/25 10:09 01/13/25 10:09
Last Documented Vital Signs
Temp Pulse Resp BP Pulse Ox
97.7 F 90 18 181/92 94
01/13/25 13:07 01/13/25 13:07 01/13/25 13:07 01/13/25 13:07 01/13/25 13:07
<Cheryl Mcclellan MD, Resident - Last Filed: 01/13/25 13:48>
*Pulse Oximetry
SaO2: 94
Oxygen Mode of Delivery: Room air
Patient hypoxic: no
*Critical Care Note
Total Time (30-74mins, 75-104mins- exclusive of procedures): 60
<Cheryl Mcclellan MD, Resident - Last Filed: 01/13/25 13:48>
Update Note
Update Note:
Problem List:
Chest tightness
Productive cough (occasional brown sputum)
hypertension
dizziness
anxiety
Plan:
CBC and BMP ordered
troponins drawn
EKG ordered
chest x-ray ordered
Differential Diagnoses:
acute coronary syndrome
obstructive sleep apnea
heart failure
anxiety
Radiology:
- chest x-ray ordered on 01/13/2025:
EKG:
Normal sinus rhythm, low voltage QRS, inferior infarct cited on or before 05 January 2021, cannot rule out anterior infarct that was cited on or before 05 January 2021
Labs:
CBC unremarkable,
Updates:
DuoNebs given� she reports improvement in breathing and that her chest doesnt feel as tight
CBC shows a hemoglobin of 16.3 otherwise unremarkable, BMP has an AST of 61 and ALT of 44
troponin 0.018
spoke to radiologist over [place] text in regards to chest x-ray conducted on 01/13/2025 in ED, radiologist believes that imaging may suggest developing pneumonia
500 mg azithromycin given in the ED
patient to be discharged on 250 mg of azithromycin to be taken once per day for 4 days.
Patient to be followed up by pulmonology in the outpatient setting and to hopefully receive an at home sleep study for possible sleep apnea
Follow-up with [facility]ology in regards to chronic cardiac condition
ED Attending Note
<Cheryl Mcclellan MD, Resident - Last Filed: 01/13/25 13:48>
-
Portions of this chart may have been created with voice recognition software.� Occasional wrong word or��sound alike� substitutions may have occurred due to the inherent limitations of voice recognition software.
<Donal Bartlett DO - Last Filed: 01/13/25 11:23>
ED Attending Note
Patient seen and examined by attending physician: Yes
I performed a history and physical exam of patient and discussed management with resident, I reviewed resident's note and agree with documented findings and plan of care.: Yes
ED Attending Note:
I evaluated the patient bedside. The patient started having some chest discomfort associated with coughing over the last several days. This morning she had more chest discomfort at 3 AM however since that time her chest pain has been continually
improving spontaneously. She does not smoke cigarettes but does use medical marijuana. She has no shortness of breath but notes some discomfort when she takes a breath in. Vital signs consistent with PE. Minimal transaminase elevation; troponin
0.018.
Discharge Plan
Departure
Patient Disposition: Home (Routine Discharge)
Date of Disposition: 01/13/25
Time of Disposition: 12:54
Patient with high blood pressure during this ER visit?: Yes
Discharge Problem:
Pneumonia, History of MA (myocardial infarction)
Instructions: Chest Pain [facility] Follow Up
Prescriptions:
New
azithromycin 250 mg tablet
250 mg PO DAILY 4 Days Qty: 4 0RF
albuterol sulfate [Ventolin HFA] 90 mcg/actuation HFA aerosol inhaler
1 inh inhalation ONCE Qty: 8.5 0RF
No Action
metoprolol succinate 50 mg tablet extended release 24 hr
50 mg PO BID
spironolactone 25 mg tablet
25 mg PO DAILY
lorazepam [Ativan] 0.5 mg Tablet
0.5 mg PO BIDPRN PRN (Reason: anxiety)
buspirone 10 mg tablet
10 mg PO BID
Artificial Tears (PF) Dropperette
1 drp BOTH EYES QIDPRN PRN (Reason: dry eye)
duloxetine 60 mg capsule,delayed release(DR/EC)
60 mg PO DAILY
Medical Marijuana
2 gummy PO HSPRN PRN (Reason: SLEEP)
ondansetron HCl 4 mg tablet
4 mg PO Q8H PRN (Reason: nausea and vomiting) Qty: 20 0RF
pantoprazole [Protonix] 40 mg tablet,delayed release (DR/EC)
40 mg PO DAILY Qty: 30 0RF
Referrals:
Guilherme Alvarez MD [Active, Pulmonary Medicine] - Follow up in 10 days
Referral Note: Sleep Apnea
Lavelle Joiner MD [Family Provider, Family Practice]
Law Umaña MD [Active, Cardiology] - Follow up in 10 days
Interventions
Interventions:
*Risk Screen - Suicide Last Done: 01/13/25 10:09
*General Assessment Last Done: 01/13/25 10:09
*Neglect/Abuse Screening Last Done: 01/13/25 10:09
*ED- Fall Risk Assessment Last Done: 01/13/25 13:07
*ED COVID-19 Vaccine History Last Done: 01/13/25 10:09
*Nursing Disposition Last Done: 01/13/25 13:07
ED- Cardiac Assessment Last Done: 01/13/25 10:36
ED- Pulmonary Assessment Last Done: 01/13/25 10:36
Discharge Date and Time
Discharge Date/Time: 01/13/25 13:26
Print Language: CHINESE
[2025-01-13 10:57] LABS: Hematocrit 46.5 % (37.0-47.0); Hemoglobin 16.3 g/dL (12.0-16.0); Mean Corp Hgb Conc. 35.1 g/dL (33.0-37.0); Mean Corpuscular Volume 96.1 fL (81.0-99.0); Platelet Count 195 10^3/uL (130-400); Red Cell Dist. Width 12.7 % (11.5-14.5)
[2025-01-13 11:00] VITALS: BP 147/75
[2025-01-13 11:02] LABS: ALT (SGPT) 44 U/L (0-35); AST (SGOT) 61 U/L (14-36); Albumin 4.7 g/dl (3.5-5.0); Alkaline Phosphatase 122 U/L (38-126); Blood Urea Nitrogen 9 mg/dl (7-17); Calcium 9.4 mg/dl (8.4-10.2); Carbon Dioxide 24 mmol/L (22-30); Chloride 104 mmol/L (98-107); Estimated Creatinine Clearance 115 ml/min; Glucose 154 mg/dl (70-99); Potassium 4.1 mmol/L (3.5-5.1); Sodium 137 mmol/L (135-145); Total Protein 7.4 g/dl (6.3-8.2); eGFR > 60.00
[2025-01-13 11:13] LABS: Troponin I 0.018 ng/ml
[2025-01-13 11:17] LABS: COVID-19 Antigen Negative (Negative)
[2025-01-13] MEDS: DUONEB 3 ML INH (11:28)
[2025-01-13 12:00] VITALS: BP 165/99
[2025-01-13] MEDS: ZITHROMAX 500 MG PO (12:49)
[2025-01-13 13:00] VITALS: BP 181/92
[2025-01-13 13:07] VITALS: BP 181/92
--- NOTE | 2025-01-13 13:26 | EDRN ---
Reviewed discharge instructions with patient. Verbalized understanding. Ambulated with steady gait to the lobby.
== END 2025-01-13 13:26 | disposition home or self-care (01) ==
LOC: EMR 10:05
PROVIDERS: EMERGENCY PHYSICIAN Emergency Medicine; FAMILY PHYSICIAN Family Medicine
DX: J18.9 Pneumonia, unspecified organism (principal); I25.2 Old myocardial infarction; I10 Essential (primary) hypertension; E78.5 Hyperlipidemia, unspecified; Z11.52 Encounter for screening for COVID-19
CPT/HCPCS: 94640; 99285; 71046; 80053; 84484; 85027; 87502; 87811; 93005

== ENCOUNTER 2025-01-20 05:55 | Emergency (ER) | payer OTHER, SELFPAY ==
[2025-01-20 06:00] VITALS: BP 107/53
[2025-01-20 06:01] VITALS: BP 107/53
--- NOTE | 2025-01-20 06:21 | ED.GENMED ---
History of Present Illness
General
Chief Complaint: Breathing Problem
Source: patient and ambulance crew
Exam Limitations: none
Time Seen by Provider: 01/20/25 06:05
Nursing documentation reviewed up to this point in time: agreed with
History of Present Illness
History of Present Illness:
Patient diagnosed with pneumonia last week and completed course of Zithromax, presents to ED after waking up this morning, unable to catch her breath prompting call to 911. Denies fever or chills. Denies nausea or vomiting. Patient reports
chronic diarrhea, since reversal of colostomy. Denies chest pain. Denies loss of appetite. Since completing course of antibiotic, patient states that her symptoms have improved. However, patient does have some residual cough. Patient
unfortunately has had number of these similar episodes at nighttime prompting her to wake up, 'gasping for air'. Patient has been recommended to call pulmonology office this morning to make an appointment to be evaluated for potential sleep apnea.
Denies recent travel or surgery. Denies back pain. Denies leg pain or swelling.
Past History
Past History
ED Past Medical History: HTN, Psychiatric ( anxiety) and Other
ED Past Surgical History: Bowel resection, Gynecological and Other
Patient has exhibited threatening behavior?: No
Social History
Tobacco: Former smoker
Alcohol: Occasional
Drug: None
Living: with family
Employment: Employed
Family History
Family History: Diabetes, CAD and Other ( mother had 2 strokes, father had cardiac issues plus diabetes)
Review of Systems
Review of Systems
Allergies reviewed?: Yes
All Other Systems: ROS reviewed and negative except as documented in HPI and ROS
Constitutional: Reports no symptoms; Denies fever
EENT: Reports no symptoms
Respiratory: Reports cough and trouble breathing
Cardiac: Reports no symptoms; Denies chest pain or palpitations
ABD/GI: Reports no symptoms; Denies vomiting or diarrhea
Musculoskeletal: Reports no symptoms; Denies edema
Skin: Reports no symptoms
Neurological: Reports no symptoms
Phy Exam
Physical Exam
Physical Exam:
Physical Exam
General: no apparent distress, not acutely ill. afebrile
Head: nc/at. eomi
Neck: supple. normal range of motion.
Heart: s1/s2 regular rate and rhythm
Lungs: no acute respiratory distress. clear bilaterally
Abdomen: normal bowel sounds. not tender.
Neuro: alert and oriented x 3. no focal neurological deficits
Skin: no rash
Psychiatric: well kept. interactive and cooperative
Extremities: no edema. no calf tenderness.
Scores
Heart Failure Risk
Heart Failure Risk Score: Not Applicable
Course
Orders/Labs/Results
Orders:
Orders
01/20/25 06:43
Alprazolam [Xanax] 0.5 mg PO NOW STA
Prednisone [Deltasone] 50 mg PO NOW STA
01/20/25 10:19
PSYCHIATRY CONSULT Urgent
Consulting Provider: Tio Chen
Was physician already notified: Yes
Reason for consult: anxiety
Vital Signs
Initial and Last Documented VS:
Initial Vital Signs
Temp Pulse Resp BP Pulse Ox
98.0 F 77 20 107/53 94
01/20/25 06:00 01/20/25 06:00 01/20/25 06:00 01/20/25 06:00 01/20/25 06:00
Last Documented Vital Signs
Temp Pulse Resp BP Pulse Ox
98.0 F 80 18 155/89 97
01/20/25 06:00 01/20/25 11:42 01/20/25 11:42 01/20/25 11:28 01/20/25 11:42
MDM/Problems Addressed
MDM/Problems Addressed:
Patient will be given dose of prednisone and xanax, for anxiety. Pt chronically takes ativan at home, as needed.
Pt evaluated in ED by (psychiatry) - recommends starting patient on Remeron 7.5mg po HS, and he will f/u with the patient as outpatient.
Called pulmonary office - an appt made for the pt on 02/03/25 @ 3pm.
Pt expresses understanding at time of discharge, to the care of her spouse. Pt otherwise is afebrile, hemodynamically stable, and appears comfortable at time of discharge. No indication for further studies at this time, as patient has been evaluated
for same complaint on multiple visits recently.
*Pulse Oximetry
SaO2: 94
Oxygen Mode of Delivery: Room air
Patient hypoxic: no
*Critical Care Note
Total Time (30-74mins, 75-104mins- exclusive of procedures): Not Applicable
ED Attending Note
-
Portions of this chart may have been created with voice recognition software.� Occasional wrong word or��sound alike� substitutions may have occurred due to the inherent limitations of voice recognition software.
Discharge Plan
Departure
Patient Disposition: Home (Routine Discharge)
Date of Disposition: 01/20/25
Time of Disposition: 11:13
Patient with high blood pressure during this ER visit?: Yes
Condition: Fair
Discharge Problem:
Sleep apnea, Anxiety
Instructions: Obstructive sleep apnea in adults, Anxiety in adults - ED ([facility])
Prescriptions:
New
mirtazapine [Remeron] 15 mg tablet
7.5 mg PO HS Qty: 30 0RF
No Action
metoprolol succinate 50 mg tablet extended release 24 hr
50 mg PO BID
spironolactone 25 mg tablet
25 mg PO DAILY
lorazepam [Ativan] 0.5 mg Tablet
0.5 mg PO BIDPRN PRN (Reason: anxiety)
buspirone 10 mg tablet
10 mg PO BID
Artificial Tears (PF) Dropperette
1 drp BOTH EYES QIDPRN PRN (Reason: dry eye)
duloxetine 60 mg capsule,delayed release(DR/EC)
60 mg PO DAILY
Medical Marijuana
2 gummy PO HSPRN PRN (Reason: SLEEP)
ondansetron HCl 4 mg tablet
4 mg PO Q8H PRN (Reason: nausea and vomiting) Qty: 20 0RF
pantoprazole [Protonix] 40 mg tablet,delayed release (/EC)
40 mg PO DAILY Qty: 30 0RF
Referrals:
Tio Chen MD [Active, Psychiatry]
Guilherme Alvarez MD [Active, Pulmonary Medicine]
Lavelle Joiner MD [Family Provider, Family Practice]
Activity Restrictions/Additional Instructions:
As discussed, please follow-up with referred psychiatrist for further evaluation and treatment. An appointment has been made for you with pulmonary office on 02/03 at 3 PM. Please call provided phone number to confirm the appointment. In the
meantime, your prescription, as recommended by Dr. Chen, has been sent electronically to [facility], to be taken at bedtime daily.
Interventions
Interventions:
*Risk Screen - Suicide Last Done: 01/20/25 06:00
*General Assessment Last Done: 01/20/25 06:00
*Neglect/Abuse Screening Last Done: 01/20/25 06:00
*ED- Fall Risk Assessment Last Done: 01/20/25 06:10
*ED COVID-19 Vaccine History Last Done: 01/20/25 06:00
*Nursing Disposition Last Done: 01/20/25 11:42
ED- Cardiac Assessment Last Done: 01/20/25 06:10
ED- Pulmonary Assessment Last Done: 01/20/25 06:10
Discharge Date and Time
Discharge Date/Time: 01/20/25 11:43
Print Language: CAMEROONIAN
[2025-01-20] MEDS: DELTASONE 50 MG PO (06:50)
[2025-01-20] MEDS: XANAX 0.5 MG PO (06:50)
[2025-01-20 07:00] VITALS: BP 136/83
[2025-01-20 08:00] VITALS: BP 139/82
--- NOTE | 2025-01-20 11:12 | CS.PSYCHR ---
Consult Summary - Psychiatry
-
Asked to see patient due to anxiety, difficulty sleeping. Seen by me.
59 yo woman to ED for breathing problem; had been seen yesterday in [place], third time this week. Wakes up gasping for air, cannot go into work today (upset by this)
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
Aware that she likely has sleep apnea ('I have no neck!') uses CPAP, is hoping to be seen soon for sleep study/get fitted for CPAP
Past psychiatric history of repeated trauma/stressors. Father killed by drunk lokie driver when pt was 4, raised by mother along with her 4 siblings. Step father came on scene and never left-strong presence. Began on effexor when pt's son was diagnosed
with chronic renal failure (started age 3, needed dialysis age 13, pt learned to do peritoneal dialysis.) Seen by psychiatrist at that time as part of supports offered families by [facility].
Has had IBS for years, developed diverticulitis, needed diversion colostomy in 2022; reversed a few months later, but started on cymbalta to help deal with it.
Rported history of buspirone 10 bid but pt does not mention it.
No other psychiatric history, medical history sig for obesity and HTN, NV mentioned but cannot confirm, reduction mammoplasty
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
issues in family, sister needs help from her, pt ambivalent since sister not working
Mental status: tearful woman sitting up in stretcher, upset about being in ED again. Blames self for stopping cymbalta. Denies suicidality, no signs of cognitive dysfuntion or psychosis. Affect reactive through full range, able to laugh at self
after she started telling me about what cymbalta is for ('here I am telling you about this!')
Impression: PTSD, generalized anxiety disorder
Would start on Remeron 7.5 mg daily. discussed limiting her use of ativan due to potential worsening effect on sleep apnea as well as potential for dependence.
Referrals given for outpatient resources.
[2025-01-20 11:28] VITALS: BP 155/89
== END 2025-01-20 11:43 | disposition home or self-care (01) ==
LOC: EMR 05:55
PROVIDERS: CONSULT PHYSICIAN Psychiatry & Neurology Psychiatry; EMERGENCY PHYSICIAN Emergency Medicine; FAMILY PHYSICIAN Family Medicine
DX: G47.30 Sleep apnea, unspecified (principal); F41.1 Generalized anxiety disorder; I10 Essential (primary) hypertension; F43.10 Post-traumatic stress disorder, unspecified; Z43.3 Encounter for attention to colostomy; Z79.899 Other long term (current) drug therapy; Z82.3 Family history of stroke; Z82.49 Family history of ischemic heart disease and other diseases of the circulatory system; Z83.3 Family history of diabetes mellitus; Z87.891 Personal history of nicotine dependence
CPT/HCPCS: 99282

== ENCOUNTER 2025-01-22 03:15 | Emergency (ER) | payer OTHER, SELFPAY ==
[2025-01-22 03:20] VITALS: BP 180/86
[2025-01-22 03:59] VITALS: BMI 38.3
[2025-01-22] MEDS: XANAX 0.5 MG PO (04:12)
--- NOTE | 2025-01-22 04:47 | ED.GENMED ---
History of Present Illness
General
Chief Complaint: Blood Pressure Problem
Source: patient and previous hospital records (ED visit January 13 as well as most recently January 20.)
Exam Limitations: none
Time Seen by Provider: 01/22/25 03:42
Nursing documentation reviewed up to this point in time: agreed with
History of Present Illness
History of Present Illness:
This is a 59-year-old overweight woman with history of hypertension, diverticulosis/diverticulitis, colostomy reversal as well as longstanding history of anxiety/panic disorder.
She initially presented to this ED January 13 with complaints of several day history of chest tightness, shortness of breath accompanied with cough and elevated blood pressure. She was also noted to be significant anxious and has longstanding
history of anxiety, follows with psychiatry as well as PCP.
Chest x-ray concerning for small pneumonia. Laboratory studies were unremarkable. Troponin was negative. She was noted to be wheezing and also had a cough, treated with nebulizer treatment which she states increased her anxiety however improved
her cough and chest discomfort. She was placed on a Z-Stephon with complete resolution of cough and shortness of breath. She states follow-up chest x-ray showed resolution of pneumonia.
She has however continued with anxiety, difficulty sleeping and return to the ED January 20.
She notes somewhat chronic difficulty sleeping and episodes of waking up 'gasping for air' There has been concern for potential obstructive sleep apnea and she has an initial appointment with layer out scheduled for January 27.
During ED visit January 20 she was evaluated by psychiatry and started on Remeron 7.5 mg at bedtime. Her BuSpar dose was increased to 10 mg 3 times daily. 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 She has longstanding history of
hypertension, follows with her primary care physician. She states her blood pressure has been running elevated over the past several months. She is prescribed hydralazine and mistakenly has been taking this only as needed once daily if systolic
blood pressure greater than 150. She states she was recently instructed by her PCP to take it once a day and to take an additional dose in the evening if her blood pressure is elevated above 150.
She presents tonight with concerns for difficulty sleeping despite taking Remeron 7.5 mg earlier this evening. She states she did sleep well for at least 3 hours 24 hours ago after taking her first dose of Remeron.
She is concerned that her blood pressure is again elevated. She has had intermittent palpitations. No chest pain, no cough no shortness of breath. No leg pain or swelling. She denies headache. No weakness no numbness.
She is prescribed lorazepam 0.5 mg but states this generally is not helpful for her anxiety.
She has a follow-up appointment scheduled with psychiatry later this month.
She has an appointment scheduled with pulmonary January 27.
She had a follow-up appointment with her PCP just yesterday, January 21.
Past History
Past History
ED Past Medical History: GERD, HTN, Hypercholesterolemia, Psychiatric ( anxiety) and Other (Irritable bowel syndrome, diverticulosis, obesity); Negative CAD
ED Past Surgical History: Bowel resection, Gynecological and Other
Patient has exhibited threatening behavior?: No
Social History
Tobacco: Former smoker
Alcohol: Occasional
Drug: None
Personal:
Living: with family
Employment: Employed
Family History
Family History: Diabetes, CAD and Other ( mother had 2 strokes, father had cardiac issues plus diabetes)
Phy Exam
Physical Exam
Physical Exam:
GENERAL: 59-year-old overweight woman appears somewhat older than stated age. Awake and alert, moderately anxious. Easily communicative.
EYE: pupils equal and reactive. anicteric
NECK: Supple, nontender, no meningismus, no significant adenopathy. No JVD.
ENT: oral mucosa is moist. No rhinorrhea.
CARDIAC: Regular rate and rhythm. no murmur.
LUNGS: Clear breath sounds bilaterally, no acute respiratory distress, no wheezes/rales/rhonchi
ABDOMEN: Rotund, soft, nondistended, without focal tenderness, normoactive BS.
NEUROLOGICAL: Alert and oriented x3, no focal neuro deficits. Gait is toribio and steady.
SKIN: Warm and dry, normal color, skin intact. No rash.
MUSCULOSKELETAL: No C/C/E. peripheral pulses are full and equal b/l. No palpable tenderness.
PSYCH: Moderately anxious.
Course
Orders/Labs/Results
Orders:
Orders
01/22/25 03:16
EKG [Electrocardiogram (*1)] Urgent
Reason for Study: Chest Pain
Other Reason for Exam: htn
01/22/25 03:17
EKG- Treatment ONCE
01/22/25 03:59
Alprazolam [Xanax] 0.5 mg PO NOW STA
Vital Signs
Initial and Last Documented VS:
Initial Vital Signs
Temp Pulse Resp BP Pulse Ox
98.8 F 80 18 180/86 93
01/22/25 03:20 01/22/25 03:20 01/22/25 03:20 01/22/25 03:20 01/22/25 03:20
Last Documented Vital Signs
Temp Pulse Resp BP Pulse Ox
98.8 F 80 18 180/86 95
01/22/25 03:20 01/22/25 03:20 01/22/25 05:22 01/22/25 03:20 01/22/25 05:07
MDM/Problems Addressed
Differential Diagnosis Includes:
The Differential Diagnosis includes, in no particular order and is not limited to:
1. Sleep apnea
2. Chronic obstructive pulmonary disease (COPD)
3. Heart failure
4. Anxiety-induced insomnia
5. Medication side effects
6. Psychiatric conditions, such as depression
7. Asthma
8. Pulmonary embolism
9. Hypertensive crisis
10. Anemia
MDM/Problems Addressed:
Hypertension/labile blood pressure, insomnia, anxiety
Patient concerned with elevated blood pressure. Similar elevations noted on multiple previous ED visits. Generally improves without intervention.
Unremarkable recent laboratory studies 1 week ago including negative troponin.
Chest x-ray January 13 concerning for small left lower lobe pneumonia. No evidence of CHF. Patient reports follow-up chest x-ray pneumonia resolved.
No prior history of CAD nor thromboembolism and previous CTA chest abdomen pelvis with complaints of chest pain, abdominal pain, hypertension all unremarkable.
Initial systolic blood pressure 180, has improved to 130 upon my initial evaluation.
EKG shows normal sinus rhythm in the 80s, left axis deviation, poor R wave anteriorly, no acute ST-T wave abnormalities and overall similar and unchanged from previous EKGs.
She continues to deny chest pain or shortness of breath. Most concerned with difficulty sleeping, moderately anxious regarding concern for potential obstructive sleep apnea.
At this point no indication for repeat imaging nor laboratory studies.
She did well with a dose of Xanax 2 days ago. Will repeat and will continue to observe.
Chronic conditions affecting care: HTN and Psychiatric illness
*Pulse Oximetry
SaO2: 95
Oxygen Mode of Delivery: Room air
Patient hypoxic: no
*EKG
Interpreted by ED Provider?: Yes
Comparison EKG: no changes (Unchanged from previous December 2024)
Rate: normal
Rhythm: sinus
[place]: left axis deviation
Interval: normal interval
QRS Pattern: normal QRS and poor R-wave progression
Ischemia: no ischemia
*[facility] Interpretation
Rate: normal
Interpretation: normal
Rhythm: sinus
*Critical Care Note
Total Time (30-74mins, 75-104mins- exclusive of procedures): Not Applicable
Update Note
Update Note:
06:10
Patient has been sleeping when undisturbed.
No hypoxia while sleeping.
Blood pressure improving, normalizing.
Will discharge to home with recommendations for follow-up with her PCP as well as [facility] out and psychiatrist as already planned.
ED Attending Note
-
Portions of this chart may have been created with voice recognition software.� Occasional wrong word or��sound alike� substitutions may have occurred due to the inherent limitations of voice recognition software.
Discharge Plan
Departure
Patient Disposition: Home (Routine Discharge)
Date of Disposition: 01/22/25
Time of Disposition: 06:06
Patient with high blood pressure during this ER visit?: No
Condition: Good
Discharge Problem:
Labile essential hypertension, Insomnia, Anxiety about health
Instructions: Insomnia, Generalized anxiety disorder, High Blood Pressure (DC), Good sleep hygiene
Prescriptions:
No Action
metoprolol succinate 50 mg tablet extended release 24 hr
50 mg PO BID
spironolactone 25 mg tablet
25 mg PO DAILY
lorazepam [Ativan] 0.5 mg Tablet
0.5 mg PO BIDPRN PRN (Reason: anxiety)
buspirone 10 mg tablet
10 mg PO TID
Artificial Tears (PF) Dropperette
1 drp BOTH EYES QIDPRN PRN (Reason: dry eye)
Medical Marijuana
2 gummy PO HSPRN PRN (Reason: SLEEP)
ondansetron HCl 4 mg tablet
4 mg PO Q8H PRN (Reason: nausea and vomiting) Qty: 20 0RF
mirtazapine [Remeron] 15 mg tablet
7.5 mg PO HS Qty: 30 0RF
pantoprazole [Protonix] 40 mg tablet,delayed release (DR/EC)
40 mg PO BID
Referrals:
Malka Jordan MD [Family Provider, Internal Medicine] - Call in 1-3 days for appt
Activity Restrictions/Additional Instructions:
Continue to follow-up with [facility] out as well as psychiatrist as already planned.
Continue current medications as instructed.
Interventions
Interventions:
*Risk Screen - Suicide Last Done: 01/22/25 03:20
*General Assessment Last Done: 01/22/25 03:32
*Neglect/Abuse Screening Last Done: 01/22/25 03:32
*ED- Fall Risk Assessment Last Done: 01/22/25 03:32
*ED COVID-19 Vaccine History Last Done: 01/22/25 03:32
ED- Cardiac Assessment Last Done: 01/22/25 03:54
ED- Neurological Assessment Last Done: 01/22/25 03:54
ED- Pulmonary Assessment Last Done: 01/22/25 03:54
Discharge Date and Time
Print Language: UPPER [place]
[2025-01-22 07:39] VITALS: BP 136/77
== END 2025-01-22 08:55 | disposition home or self-care (01) ==
LOC: EMR 03:15
PROVIDERS: EMERGENCY PHYSICIAN Emergency Medicine; FAMILY PHYSICIAN Student in an Organized Health Care Education/Training Program
DX: I10 Essential (primary) hypertension (principal); G47.00 Insomnia, unspecified; F41.9 Anxiety disorder, unspecified; E78.00 Pure hypercholesterolemia, unspecified; Z79.899 Other long term (current) drug therapy; Z87.891 Personal history of nicotine dependence; E66.3 Overweight
CPT/HCPCS: 99283; 93005

== ENCOUNTER 2025-01-25 13:07 | Emergency (ER) | payer OTHER, SELFPAY ==
[2025-01-25 13:10] VITALS: BP 144/73; BMI 38.7
[2025-01-25 13:11] VITALS: BP 144/73
[2025-01-25 13:30] VITALS: BP 125/69
[2025-01-25 14:00] VITALS: BP 115/63
[2025-01-25 14:26] VITALS: BP 116/57
[2025-01-25 14:30] VITALS: BP 122/76
--- NOTE | 2025-01-25 14:39 | ED.GENMED ---
History of Present Illness
General
Chief Complaint: Allergic Reaction
Source: patient
Exam Limitations: none
Time Seen by Provider: 01/25/25 13:48
History of Present Illness
History of Present Illness:
59-year-old female presents with facial flushing and swelling shortly after starting to eat a hoagie at a restaurant. She had a similar reaction about a year ago when eating at the same restaurant. She was told she has an allergy to tuna oil. Due
to the swelling in her face her called EMS and they brought her here. EMS gave 50 mg IV Benadryl. Since being here and waiting she states she feels much better. She denies throat closing trouble breathing tongue swelling or vomiting. No
other complaints at this time
Past History
Past History
ED Past Medical History: GERD, HTN, Hypercholesterolemia, Psychiatric ( anxiety) and Other (Irritable bowel syndrome, diverticulosis, obesity); Negative CAD
ED Past Surgical History: Bowel resection, Gynecological and Other
Patient has exhibited threatening behavior?: No
Social History
Tobacco: Former smoker
Alcohol: Occasional
Drug: None
Personal:
Living: with family
Employment: Employed
Family History
Family History: Diabetes, CAD and Other ( mother had 2 strokes, father had cardiac issues plus diabetes)
Phy Exam
Physical Exam
Physical Exam:
General: Well-appearing female no acute respiratory distress
HEENT: Normocephalic atraumatic face is symmetric no swelling posterior pharynx patent no trismus or drooling no stridor
Heart: Regular rate and rhythm
Lungs: Clear no wheeze or stridor
Skin is warm no rash
Course
Vital Signs
Initial and Last Documented VS:
Initial Vital Signs
Temp Pulse Resp BP Pulse Ox
98.6 F 91 12 144/73 95
01/25/25 13:10 01/25/25 13:10 01/25/25 13:10 01/25/25 13:10 01/25/25 13:10
Last Documented Vital Signs
Temp Pulse Resp BP Pulse Ox
98.6 F 82 16 125/69 99
01/25/25 13:10 01/25/25 13:45 01/25/25 14:00 01/25/25 13:30 01/25/25 14:00
MDM/Problems Addressed
Differential Diagnosis Includes:
Patient presented after possible allergic reaction while ingesting [place] hoagie. Symptoms have resolved. No indication for epipen. It has been over 2 hours since the ingestion. No respiratory distress. Patient wishes to go home. Advise she
continue Benadryl as needed. Stable for discharge
*Pulse Oximetry
SaO2: 99
Oxygen Mode of Delivery: Room air
Patient hypoxic: no
*Critical Care Note
Total Time (30-74mins, 75-104mins- exclusive of procedures): Not Applicable
ED Attending Note
-
Portions of this chart may have been created with voice recognition software.� Occasional wrong word or��sound alike� substitutions may have occurred due to the inherent limitations of voice recognition software.
Discharge Plan
Departure
Patient Disposition: Home (Routine Discharge)
Date of Disposition: 01/25/25
Time of Disposition: 14:42
Patient with high blood pressure during this ER visit?: No
Discharge Problem:
Allergic reaction
Instructions: Hives (DC)
Prescriptions:
No Action
metoprolol succinate 50 mg tablet extended release 24 hr
50 mg PO BID
spironolactone 25 mg tablet
25 mg PO DAILY
lorazepam [Ativan] 0.5 mg Tablet
0.5 mg PO BIDPRN PRN (Reason: anxiety)
buspirone 10 mg tablet
10 mg PO TID
Artificial Tears (PF) Dropperette
1 drp BOTH EYES QIDPRN PRN (Reason: dry eye)
Medical Marijuana
2 gummy PO HSPRN PRN (Reason: SLEEP)
ondansetron HCl 4 mg tablet
4 mg PO Q8H PRN (Reason: nausea and vomiting) Qty: 20 0RF
mirtazapine [Remeron] 15 mg tablet
7.5 mg PO HS Qty: 30 0RF
pantoprazole [Protonix] 40 mg tablet,delayed release (DR/EC)
40 mg PO BID
Referrals:
Malka Jordan MD [Family Provider, Internal Medicine]
Activity Restrictions/Additional Instructions:
You may continue Benadryl if needed. Return if worse otherwise
Interventions
Interventions:
*Risk Screen - Suicide Last Done: 01/25/25 13:10
*General Assessment Last Done: 01/25/25 13:10
*Neglect/Abuse Screening Last Done: 01/25/25 13:10
*ED- Fall Risk Assessment Last Done: 01/25/25 13:10
ED- Cardiac Assessment Last Done: 01/25/25 13:25
ED- Pulmonary Assessment Last Done: 01/25/25 13:25
ED-Skin Assessment Last Done: 01/25/25 13:10
Discharge Date and Time
Print Language: ISRAELI
== END 2025-01-25 14:51 | disposition home or self-care (01) ==
LOC: EMR 13:07
PROVIDERS: EMERGENCY PHYSICIAN Emergency Medicine; FAMILY PHYSICIAN Student in an Organized Health Care Education/Training Program
DX: T78.1XXA Other adverse food reactions, not elsewhere classified, initial encounter (principal); R22.0 Localized swelling, mass and lump, head; X58.XXXA Exposure to other specified factors, initial encounter; E78.00 Pure hypercholesterolemia, unspecified; I10 Essential (primary) hypertension; Z87.891 Personal history of nicotine dependence
CPT/HCPCS: 99283

== ENCOUNTER 2025-01-28 05:43 | Emergency (ER) | payer OTHER, SELFPAY ==
[2025-01-28 05:49] VITALS: BP 138/84
--- NOTE | 2025-01-28 07:02 | ED.GENMED ---
History of Present Illness
General
Chief Complaint: Anxiety
Source: patient
Exam Limitations: none
Time Seen by Provider: 01/28/25 06:47
History of Present Illness
History of Present Illness:
59-year-old female presents with overwhelming anxiety. She was seen here 2 to 3 days ago after a potential reaction to tuna oil. She has been dealing with anxiety. She has been dealing with insomnia. She is not sleeping well. She has lost 7
pounds in a week. She is on Ativan 0.5 mg twice a day. She was prescribed trazodone to help her sleep but this is not helping. She is tearful. She states she cannot function. No fever chest pain or shortness of breath.
Past History
Past History
ED Past Medical History: GERD, HTN, Hypercholesterolemia, Psychiatric ( anxiety) and Other (Irritable bowel syndrome, diverticulosis, obesity); Negative CAD
ED Past Surgical History: Bowel resection, Gynecological and Other
Patient has exhibited threatening behavior?: No
Social History
Tobacco: Former smoker
Alcohol: Occasional
Drug: None
Personal:
Living: with family
Employment: Employed
Family History
Family History: Diabetes, CAD and Other ( mother had 2 strokes, father had cardiac issues plus diabetes)
Phy Exam
Physical Exam
Physical Exam:
General: Tearful anxious female no acute respiratory distress
HEENT normal cephalic atraumatic
Heart: Regular rate and rhythm
Lungs: Clear no wheeze
Extremities: No cyanosis
Course
Orders/Labs/Results
Orders:
Orders
01/28/25 07:01
diazePAM [Valium Injection] 5 mg IV NOW STA
01/28/25 07:20
Complete Blood Count/With Diff Urgent
01/28/25 09:00
Comprehensive Metabolic Panel Urgent
Magnesium Urgent
Abnormal Lab Results
01/28/25 01/28/25
07:20 09:00
MCH 33.7 H pg
(27.0-31.0)
MPV 10.5 H fL
(7.4-10.4)
Absolute Neuts (auto) 6.8 H 10^3/uL
(1.4-6.5)
Absolute Lymphs (auto) 0.9 L 10^3/uL
(1.2-3.4)
Absolute Monos (auto) 0.7 H 10^3/uL
(0.1-0.6)
Neutrophils % 77.6 H %
(42.2-75.2)
Lymphocytes % 10.2 L %
(20.5-51.1)
Glucose 132 H mg/dl
(70-99)
Total Bilirubin 1.6 H mg/dl
(0.2-1.3)
AST 71 H U/L
(14-36)
ALT 62 H U/L
(0-35)
01/28/25 07:20
01/28/25 09:00
Vital Signs
Initial and Last Documented VS:
Initial Vital Signs
Temp Pulse Resp BP Pulse Ox
98.2 F 73 24 138/84 99
01/28/25 05:49 01/28/25 05:49 01/28/25 05:49 01/28/25 05:49 01/28/25 05:49
Last Documented Vital Signs
Temp Pulse Resp BP Pulse Ox
98.2 F 81 16 118/77 94
01/28/25 05:49 01/28/25 07:29 01/28/25 07:29 01/28/25 09:00 01/28/25 09:45
MDM/Problems Addressed
Differential Diagnosis Includes:
Patient with overwhelming anxiety to the point where she cannot sleep can even cannot function. She is on BuSpar as well as Ativan. Will check labs and electrolytes. Try IV Valium. Consider crisis consult
*Pulse Oximetry
SaO2: 99
Oxygen Mode of Delivery: Room air
Patient hypoxic: no
*Critical Care Note
Total Time (30-74mins, 75-104mins- exclusive of procedures): Not Applicable
Update Note
Update Note:
Patient did receive some relief with the Valium here. Labs reviewed without significant finding. I suspect underlying anxiety causing symptoms. Patient has been seen by psychiatry. She is waiting to get an intake appointment. Offered her crisis
team today but she is already tied in.
ED Attending Note
-
Portions of this chart may have been created with voice recognition software.� Occasional wrong word or��sound alike� substitutions may have occurred due to the inherent limitations of voice recognition software.
Discharge Plan
Departure
Patient Disposition: Home (Routine Discharge)
Date of Disposition: 01/28/25
Time of Disposition: 10:27
Patient with high blood pressure during this ER visit?: No
Discharge Problem:
Anxiety
Instructions: Anxiety, Adult (DC)
Prescriptions:
New
diazepam [Valium] 5 mg tablet
5 mg PO BID PRN (Reason: anxiety) Qty: 10 0RF
No Action
metoprolol succinate 50 mg tablet extended release 24 hr
50 mg PO BID
spironolactone 25 mg tablet
25 mg PO DAILY
lorazepam [Ativan] 0.5 mg Tablet
0.5 mg PO BIDPRN PRN (Reason: anxiety)
buspirone 10 mg tablet
10 mg PO TID
Artificial Tears (PF) Dropperette
1 drp BOTH EYES QIDPRN PRN (Reason: dry eye)
Medical Marijuana
2 gummy PO HSPRN PRN (Reason: SLEEP)
ondansetron HCl 4 mg tablet
4 mg PO Q8H PRN (Reason: nausea and vomiting) Qty: 20 0RF
mirtazapine [Remeron] 15 mg tablet
7.5 mg PO HS Qty: 30 0RF
pantoprazole [Protonix] 40 mg tablet,delayed release (DR/EC)
40 mg PO BID
Referrals:
Malka Jordan MD [Family Provider, Internal Medicine]
Activity Restrictions/Additional Instructions:
Continue to follow-up with your doctor. You may use Valium if needed for anxiety.
Interventions
Interventions:
*Risk Screen - Suicide Last Done: 01/28/25 05:49
*General Assessment Last Done: 01/28/25 07:39
*Neglect/Abuse Screening Last Done: 01/28/25 07:39
*ED- Fall Risk Assessment Last Done: 01/28/25 07:39
*ED COVID-19 Vaccine History Last Done: 01/28/25 07:39
ED-Psychological Assessment Last Done: 01/28/25 07:39
Discharge Date and Time
Print Language: ARABIC
[2025-01-28] MEDS: VALIUM INJECTION 5 MG IV (07:23)
[2025-01-28 07:29] VITALS: BP 120/61
[2025-01-28 07:39] VITALS: BMI 36.8
[2025-01-28 07:42] LABS: Hematocrit 45.6 % (37.0-47.0); Hemoglobin 15.9 g/dL (12.0-16.0); Mean Corp Hgb Conc. 34.9 g/dL (33.0-37.0); Mean Corpuscular Volume 96.6 fL (81.0-99.0); Nucleated Red Blood Cells % 0 %; Platelet Count 192 10^3/uL (130-400); Red Cell Dist. Width 12.7 % (11.5-14.5)
[2025-01-28 08:00] VITALS: BP 120/75
[2025-01-28 09:00] VITALS: BP 118/77
[2025-01-28 09:48] LABS: ALT (SGPT) 62 U/L (0-35); AST (SGOT) 71 U/L (14-36); Albumin 4.5 g/dl (3.5-5.0); Alkaline Phosphatase 83 U/L (38-126); Blood Urea Nitrogen 9 mg/dl (7-17); Calcium 9.7 mg/dl (8.4-10.2); Carbon Dioxide 25 mmol/L (22-30); Chloride 106 mmol/L (98-107); Estimated Creatinine Clearance 113 ml/min; Glucose 132 mg/dl (70-99); Magnesium 1.9 mg/dl (1.6-2.3); Potassium 3.7 mmol/L (3.5-5.1); Sodium 139 mmol/L (135-145); Total Protein 7.1 g/dl (6.3-8.2); eGFR > 60.00
[2025-01-28 10:00] VITALS: BP 130/64
--- NOTE | 2025-01-28 11:24 | EDRN ---
Reviewed discharge instructions with patient. Verbalized understanding. Ambulated with steady gait to the lobby.
[2025-01-28 11:26] VITALS: BP 123/69
== END 2025-01-28 11:05 | disposition home or self-care (01) ==
LOC: EMR 05:43
PROVIDERS: Physician Assistant; EMERGENCY PHYSICIAN Emergency Medicine; FAMILY PHYSICIAN Student in an Organized Health Care Education/Training Program
DX: F41.9 Anxiety disorder, unspecified (principal); I10 Essential (primary) hypertension; E78.00 Pure hypercholesterolemia, unspecified; E66.9 Obesity, unspecified; Z68.36 Body mass index [BMI] 36.0-36.9, adult; K21.9 Gastro-esophageal reflux disease without esophagitis; K58.9 Irritable bowel syndrome, unspecified; Z87.891 Personal history of nicotine dependence; Z82.49 Family history of ischemic heart disease and other diseases of the circulatory system; Z82.3 Family history of stroke
CPT/HCPCS: 99284; 96374; 80053; 83735; 85025

== ENCOUNTER 2025-01-28 22:46 | Emergency (ER) | payer OTHER, SELFPAY ==
[2025-01-28 22:48] VITALS: BP 170/90
--- NOTE | 2025-01-28 23:40 | ED.GENMED ---
History of Present Illness
General
Chief Complaint: Depression
Source: patient
Exam Limitations: none
Time Seen by Provider: 01/28/25 23:32
Nursing documentation reviewed up to this point in time: agreed with
History of Present Illness
History of Present Illness:
Patient to ED with complaint of anxiety, 'feeling like I'm losing my mind'. SHe was seen in ED earlier today with similar complaint. Given Valium here which she states allowed her to sleep for 1 hour. SHe declined crisis intervention as she has
been in contact with [facility]. She returns tonight, very tearfu, stating she is feeling worse. SHe denies wanting to her self or others. Requesting crisis consult.
Past History
Past History
ED Past Medical History: GERD, HTN, Hypercholesterolemia, Psychiatric ( anxiety) and Other (Irritable bowel syndrome, diverticulosis, obesity); Negative CAD
ED Past Surgical History: Bowel resection, Gynecological and Other
Patient has exhibited threatening behavior?: No
Social History
Tobacco: Former smoker
Alcohol: Occasional
Drug: None
Personal:
Living: with family
Employment: Employed
Family History
Family History: Diabetes, CAD and Other ( mother had 2 strokes, father had cardiac issues plus diabetes)
Review of Systems
Review of Systems
Allergies reviewed?: Yes
All Other Systems: ROS reviewed and negative except as documented in HPI and ROS
Constitutional: Reports no symptoms
EENT: Reports no symptoms
Respiratory: Reports no symptoms
Cardiac: Reports no symptoms
ABD/GI: Reports no symptoms
: Reports no symptoms
Musculoskeletal: Reports no symptoms
Skin: Reports no symptoms
Neurological: Reports no symptoms
Psychiatric: Reports depression and anxiety
Phy Exam
General Physical Exam
General Presentation: moderate distress
General age: appears stated age
General Skin: warm
General Habitus: normal
General Mental: anxious and tearful
General Hydration: appears well hydrated
Neurological Exam
Neurological Exam: alert and oriented x3
Musculoskeletal Exam
Musculoskeletal Exam: full ROM
Skin Exam
Skin Exam: normal color and warm/dry
Psychiatric Exam
Psychiatric Exam: anxious and depressed
Course
Orders/Labs/Results
Orders:
Orders
01/28/25 22:54
Crisis Consult Urgent
Reason for Consult: Depression
Vital Signs
Initial and Last Documented VS:
Initial Vital Signs
Temp Pulse Resp BP Pulse Ox
98.4 F 82 22 170/90 98
01/28/25 22:48 01/28/25 22:48 01/28/25 22:48 01/28/25 22:48 01/28/25 22:48
Last Documented Vital Signs
Temp Pulse Resp BP Pulse Ox
98.4 F 82 22 170/90 98
01/28/25 22:48 01/28/25 22:48 01/28/25 22:48 01/28/25 22:48 01/28/25 23:44
*Pulse Oximetry
SaO2: 98
Oxygen Mode of Delivery: Room air
Patient hypoxic: no
*Critical Care Note
Total Time (30-74mins, 75-104mins- exclusive of procedures): Not Applicable
Update Note
Update Note:
Patient evaluated by crisis. According to crisis patient confirmed that she is not suicidal or homicidal and that she is having difficulty coping, sleeping. Crisis offered help with outpatient services but patient apparently declined. I went back
in to speak with her but she was no longer in room, no longer in dept. I spoke with her prior to crisis eval and she denied any SI, HI. Her interest is in finding a sleep medication that will work for her and to speak with a psychiatrist or
therapist about her difficulty focussing, constantly feeling teary. I did not feel that she was a danger to self or others.
ED Attending Note
-
Portions of this chart may have been created with voice recognition software.� Occasional wrong word or��sound alike� substitutions may have occurred due to the inherent limitations of voice recognition software.
Discharge Plan
Departure
Patient Disposition: Elopement
Date of Disposition: 01/29/25
Time of Disposition: 00:42
Patient with high blood pressure during this ER visit?: Yes
Condition: Fair
Covid-19: Not Applicable
Discharge Problem:
Depression, Anxiety
Prescriptions:
No Action
metoprolol succinate 50 mg tablet extended release 24 hr
50 mg PO BID
spironolactone 25 mg tablet
25 mg PO DAILY
lorazepam [Ativan] 0.5 mg Tablet
0.5 mg PO BIDPRN PRN (Reason: anxiety)
buspirone 10 mg tablet
10 mg PO TID
Artificial Tears (PF) Dropperette
1 drp BOTH EYES QIDPRN PRN (Reason: dry eye)
Medical Marijuana
2 gummy PO HSPRN PRN (Reason: SLEEP)
ondansetron HCl 4 mg tablet
4 mg PO Q8H PRN (Reason: nausea and vomiting) Qty: 20 0RF
mirtazapine [Remeron] 15 mg tablet
7.5 mg PO HS Qty: 30 0RF
pantoprazole [Protonix] 40 mg tablet,delayed release (DR/EC)
40 mg PO BID
diazepam [Valium] 5 mg tablet
5 mg PO BID PRN (Reason: anxiety) Qty: 10 0RF
Referrals:
Malka Jordan MD [Family Provider, Internal Medicine]
Interventions
Interventions:
*Risk Screen - Suicide Last Done: 01/28/25 22:48
*General Assessment Last Done: 01/29/25 00:58
*Neglect/Abuse Screening Last Done: 01/28/25 22:48
*ED- Fall Risk Assessment Last Done: 01/29/25 00:58
*ED COVID-19 Vaccine History Last Done: 01/29/25 00:58
*Nursing Disposition Last Done: 01/29/25 00:58
ED- Neurological Assessment Last Done: 01/29/25 00:11
ED-Psychological Assessment Last Done: 01/29/25 00:11
ED-Suicide Risk Assessment Last Done: 01/28/25 23:02
Discharge Date and Time
Discharge Date/Time: 01/29/25 00:59
Print Language: [place]
== END 2025-01-29 00:59 | disposition left against medical advice (07) ==
LOC: EMR 22:46
PROVIDERS: EMERGENCY PHYSICIAN Emergency Medicine; FAMILY PHYSICIAN Student in an Organized Health Care Education/Training Program
DX: F32.A Depression, unspecified (principal); F41.9 Anxiety disorder, unspecified; I10 Essential (primary) hypertension; E78.00 Pure hypercholesterolemia, unspecified; E66.9 Obesity, unspecified; K21.9 Gastro-esophageal reflux disease without esophagitis; K58.9 Irritable bowel syndrome, unspecified; Z87.891 Personal history of nicotine dependence; Z82.49 Family history of ischemic heart disease and other diseases of the circulatory system; Z82.3 Family history of stroke
CPT/HCPCS: 99281

== ENCOUNTER → 2025-01-29 09:56 | Outpatient (REF) | payer OTHER, SELFPAY | LOC: HWRAD 09:56 | PROVIDERS: ATTENDING PHYSICIAN Internal Medicine; PRIMARYCARE PHYSICIAN Student in an Organized Health Care Education/Training Program | DX: R93.89 Abnormal findings on diagnostic imaging of other specified body structures (principal) | CPT/HCPCS: 71250 ==

== ENCOUNTER → 2025-02-13 21:45 | Outpatient (REF) | payer OTHER, SELFPAY | LOC: DHSLP 21:45 | PROVIDERS: ATTENDING PHYSICIAN Internal Medicine; FAMILY PHYSICIAN Student in an Organized Health Care Education/Training Program; REFERRING PHYSICIAN Internal Medicine Critical Care Medicine | DX: G47.33 Obstructive sleep apnea (adult) (pediatric) (principal) | CPT/HCPCS: 95811 ==

== ENCOUNTER 2025-03-25 06:26 | Day surgery (SDC) | payer OTHER, SELFPAY | END 2025-03-25 11:20 | disposition home or self-care (01) | LOC: GI 06:26 | PROVIDERS: ATTENDING PHYSICIAN Internal Medicine | DX: K25.9 Gastric ulcer, unspecified as acute or chronic, without hemorrhage or perforation (principal); K22.89 Other specified disease of esophagus; K29.70 Gastritis, unspecified, without bleeding; K31.89 Other diseases of stomach and duodenum | CPT/HCPCS: 43239; 88305; 88342 ==

== ENCOUNTER → 2025-05-01 14:56 | Outpatient (REF) | payer OTHER, SELFPAY | LOC: MRI 14:56 | PROVIDERS: ATTENDING PHYSICIAN Internal Medicine; FAMILY PHYSICIAN Student in an Organized Health Care Education/Training Program | DX: K76.0 Fatty (change of) liver, not elsewhere classified (principal); R74.8 Abnormal levels of other serum enzymes | CPT/HCPCS: 74183; 76391; A9575 ==

== ENCOUNTER 2025-05-20 06:24 | Day surgery (SDC) | payer OTHER, SELFPAY | END 2025-05-20 11:54 | disposition home or self-care (01) | LOC: GI 06:24 | PROVIDERS: ATTENDING PHYSICIAN Internal Medicine | DX: Z87.11 Personal history of peptic ulcer disease (principal); K22.89 Other specified disease of esophagus; K31.819 Angiodysplasia of stomach and duodenum without bleeding; K31.89 Other diseases of stomach and duodenum; K25.9 Gastric ulcer, unspecified as acute or chronic, without hemorrhage or perforation; K20.80 Other esophagitis without bleeding; K29.30 Chronic superficial gastritis without bleeding | CPT/HCPCS: 43239; 88305 ==